=== PATIENT | male | born 1955 | race Caucasian/White ===

== ENCOUNTER 2019-05-05 13:53 | Observation (INO) | payer MEDICAID ==
--- NOTE | 2019-05-05 15:50 | PCM.HP.2 ---
H&P History of Present Illness - General Date of Service: 05/05/19 Admit Problem/Dx: Admission Diagnosis/Problem Admission Diagnosis/Problem Pancreatitis Source of Information: Patient History Limitations: Reports: No Limitations - History of Present Illness Initial Comments - Free Text/Narative: This is a 64yo M placed in observation for management of acute pancreatitis. He denies fever or chills but has intermittent abdominal pain at times. Onset of Symptoms: Reports: Gradual Duration of Symptoms: Reports: Intermittent, Waxing/Waning Location: Reports: Abdomen Severity: Moderate Improves with: Reports: None Worsens with: Reports: None Associated Symptoms: Reports: No Other Symptoms H&P Review of Systems - Review of Systems: Review Of Systems: Comprehensive ROS is negative, except as noted in HPI. Exam - Exam Exam: See Below - Exam General: Alert, Oriented HEENT: PERRLA, Conjunctiva Clear, EACs Clear, EOMI Neck: Supple, Trachea Midline Lungs: Clear to Auscultation, Normal Respiratory Effort Cardiovascular: Regular Rate, Regular Rhythm GI/Abdominal Exam: Normal Bowel Sounds, Soft, Tender Extremities: Normal Inspection Peripheral Pulses: 2+: Dorsalis Pedis (L), Dorsalis Pedis (R) Skin: Warm, Dry, Intact - Patient Data Lab Results Last 24 hrs: Laboratory Results - last 24 hr 05/05/19 05/05/19 Range/Units 14:18 14:18 WBC 10.9 D (4.0-11.0) K/uL RBC 5.61 (4.50-6.50) M/uL Hgb 16.1 (13.0-18.0) g/dL Hct 46.4 (40.0-54.0) % MCV 83 (76-96) fL MCH 28.7 (27.0-32.0) pg MCHC 34.7 (31.0-35.0) g/dL RDW 13.2 (11.0-16.0) % Plt Count 371 D (150-400) K/uL MPV 10.0 (6.0-10.0) fL Neut % (Auto) 74.2 H (45.0-70.0) % Lymph % (Auto) 18.3 L (20.0-40.0) % [place] % (Auto) 5.7 (3.0-10.0) % Eos % (Auto) 1.3 (1.0-5.0) % Baso % (Auto) 0.5 (0.0-0.5) % Neut # (Auto) 8.13 H (2.00-7.50) K/uL Lymph # (Auto) 2.00 (1.50-4.00) K/uL [place] # (Auto) 0.62 (0.20-0.80) K/uL Eos # (Auto) 0.14 (0.04-0.40) K/uL Baso # (Auto) 0.05 (0.02-0.10) K/uL Lactic Acid 1.07 (0.90-1.70) mmol/L Result Diagrams: 05/05/19 14:18 05/05/19 14:18 - Problem List (1) Acute pancreatitis SNOMED Code(s): 886125990 ICD Code: K85.90 - ACUTE PANCREATITIS WITHOUT NECROSIS OR INFECTION, UNSP Status: Acute Priority: High Current Visit: Yes Qualifiers: Pancreatitis type: unspecified pancreatitis type Acute pancreatitis complication: unspecified Qualified Code(s): K85.90 - Acute pancreatitis without necrosis or infection, unspecified Problem List Initiated/Reviewed/Updated: Yes Orders Last 24hrs: Active Orders 24 hr Category Date Time Status Patient Status [ADT] Routine ADT 05/05/19 15:12 Ordered Vital Signs [RC] Q4H Care 05/05/19 15:12 Ordered Abdomen Pelvis wo Cont [CT] Routine Exams 05/05/19 Taken COMPREHENSIVE METABOLIC PN,CMP [CHEM] Routine Lab 05/05/19 14:18 Received LIPASE [CHEM] Routine Lab 05/05/19 14:18 Received Lactated Ringers [Ringers, Lactated] 1,000 ml Med 05/05/19 15:15 Ordered IV ASDIRECTED Medication Orders Lactated Ringer's (Ringers, Lactated) 1,000 mls @ 500 mls/hr IV ASDIRECTED JACK[facility] Stop: 05/10/19 17:14 Assessment/Plan Comment:: Patient to be placed in observation and given IV fluid hydration. F/u labs in am. Discussed pain management and conservative therapy.
[2019-05-05] MEDS: Lactated Ringers 1,000 ML IV SCH ×4 (17:26→23:37)
--- NOTE | 2019-05-05 20:12 | CT ---
CLINICAL DATA: Unspecified abdominal pain. UNENHANCED ABDOMEN AND PELVIC CT, 05 MAY 2019: Multislice acquisition through the abdomen and pelvis without IV or oral contrast was performed. No priors. The lung bases are clear. There is diffuse fatty infiltration of the liver. No focal hepatic lesions. The gallbladder appears normal. The spleen appears normal. The pancreas is normal size. There is, however, mild peripancreatic fat stranding suggesting mild pancreatitis. No evidence of pancreatic mass. The right and left adrenals appear normal. There are bilateral parapelvic cysts. The kidneys otherwise appear normal. No nephrocalcinosis or nephrolithiasis. No hydronephrosis or hydroureter. No evidence of appendicitis. There is a moderate amount of stool noted within the right colon. The bladder is partially fluid-filled. It appears normal. The prostate is enlarged. No free air. No free fluid. No dilated loops of bowel. No adenopathy. There is an umbilical hernia containing fat. There is degenerative disk disease at multiple levels in the lower thoracic and lumbar spine. IMPRESSION: Multiple findings, as discussed above. Job: [id number] [facility]
[2019-05-06] MEDS: Lactated Ringers 1,000 ML IV SCH ×2 (01:34→03:33)
[2019-05-06] MEDS ORDERED: Dextrose 5%-0.45% NaCl 500 ML IV SCH (09:30)
--- NOTE | 2019-05-06 10:54 | PCM.PN ---
- General Info Date of Service: 05/06/19 Subjective Update: Patient remains stable and pain is controlled. He denies any nausea or vomiting. No issues overnight. Functional Status: Reports: Pain Controlled - Review of Systems General: Reports: No Symptoms HEENT: Reports: No Symptoms Pulmonary: Reports: No Symptoms Cardiovascular: Reports: No Symptoms Gastrointestinal: Reports: Abdominal Pain (on and off but non-localized) Genitourinary: Reports: No Symptoms Musculoskeletal: Reports: No Symptoms - Patient Data Vitals - Most Recent: Last Vital Signs Temp 37.0 C 05/06/19 08:00 Pulse 78 05/06/19 08:00 Resp 18 05/06/19 08:00 BP 169/60 H 05/06/19 08:00 Pulse Ox 98 05/06/19 08:00 Weight - Most Recent: 113.489 kg I&O - Last 24 Hours: Intake & Output 05/05/19 05/06/19 05/06/19 22:59 06:59 14:59 Intake Total 250 5912 Output Total 1675 Balance 250 4237 Lab Results Last 24 Hours: Laboratory Results - last 24 hr 05/05/19 05/05/19 05/05/19 Range/Units 14:18 14:18 14:18 WBC 10.9 D (4.0-11.0) K/uL RBC 5.61 (4.50-6.50) M/uL Hgb 16.1 (13.0-18.0) g/dL Hct 46.4 (40.0-54.0) % MCV 83 (76-96) fL MCH 28.7 (27.0-32.0) pg MCHC 34.7 (31.0-35.0) g/dL RDW 13.2 (11.0-16.0) % Plt Count 371 D (150-400) K/uL MPV 10.0 (6.0-10.0) fL Neut % (Auto) 74.2 H (45.0-70.0) % Lymph % (Auto) 18.3 L (20.0-40.0) % [place] % (Auto) 5.7 (3.0-10.0) % Eos % (Auto) 1.3 (1.0-5.0) % Baso % (Auto) 0.5 (0.0-0.5) % Neut # (Auto) 8.13 H (2.00-7.50) K/uL Lymph # (Auto) 2.00 (1.50-4.00) K/uL [place] # (Auto) 0.62 (0.20-0.80) K/uL Eos # (Auto) 0.14 (0.04-0.40) K/uL Baso # (Auto) 0.05 (0.02-0.10) K/uL Sodium 133 L (136-145) mmol/L Potassium 4.0 (3.5-5.1) mmol/L Chloride 99 (98-107) mmol/L Carbon Dioxide 25.0 (21.0-32.0) mmol/L Anion Gap 13.0 (5.0-15.0) mmol/L BUN 15 D (8-26) mg/dL Creatinine 1.23 (0.70-1.30) mg/dL Est Cr Clr Drug Dosing TNP Estimated GFR (MDRD) 59 L (>60) MLS/MIN BUN/Creatinine Ratio 12.2 (6-25) Glucose 231 H D (74-100) mg/dL Lactic Acid 1.07 (0.90-1.70) mmol/L Calcium 9.3 (8.5-10.1) mg/dL Total Bilirubin 0.6 (0.0-1.0) mg/dL AST 12 L (15-37) U/L ALT 26 (12-78) U/L Alkaline Phosphatase 154 H (46-116) U/L Total Protein 8.5 H (6.4-8.2) g/dL Albumin 3.9 (3.4-5.0) g/dL Globulin 4.6 H (2.2-4.2) g/dL Albumin/Globulin Ratio 0.9 (0.8-2.0) Lipase 4309 H* (73-393) U/L 05/06/19 05/06/19 Range/Units 07:50 07:50 WBC 10.9 (4.0-11.0) K/uL RBC 4.86 (4.50-6.50) M/uL Hgb 14.1 (13.0-18.0) g/dL Hct 40.4 (40.0-54.0) % MCV 83 (76-96) fL MCH 29.0 (27.0-32.0) pg MCHC 34.9 (31.0-35.0) g/dL RDW 13.0 (11.0-16.0) % Plt Count 287 D (150-400) K/uL MPV 10.2 H (6.0-10.0) fL Neut % (Auto) 76.2 H (45.0-70.0) % Lymph % (Auto) 15.2 L (20.0-40.0) % [place] % (Auto) 6.8 (3.0-10.0) % Eos % (Auto) 1.6 (1.0-5.0) % Baso % (Auto) 0.2 (0.0-0.5) % Neut # (Auto) 8.29 H (2.00-7.50) K/uL Lymph # (Auto) 1.65 (1.50-4.00) K/uL [place] # (Auto) 0.74 (0.20-0.80) K/uL Eos # (Auto) 0.17 (0.04-0.40) K/uL Baso # (Auto) 0.02 (0.02-0.10) K/uL Sodium 136 (136-145) mmol/L Potassium 3.7 (3.5-5.1) mmol/L Chloride 103 (98-107) mmol/L Carbon Dioxide 23.0 (21.0-32.0) mmol/L Anion Gap 13.7 (5.0-15.0) mmol/L BUN 9 D (8-26) mg/dL Creatinine 0.87 D (0.70-1.30) mg/dL Est Cr Clr Drug Dosing 96.94 Estimated GFR (MDRD) > 60 (>60) MLS/MIN BUN/Creatinine Ratio 10.3 (6-25) Glucose 185 H (74-100) mg/dL Lactic Acid (0.90-1.70) mmol/L Calcium 8.2 L (8.5-10.1) mg/dL Total Bilirubin 0.7 (0.0-1.0) mg/dL AST 12 L (15-37) U/L ALT 19 (12-78) U/L Alkaline Phosphatase 118 H (46-116) U/L Total Protein 6.6 (6.4-8.2) g/dL Albumin 2.9 L (3.4-5.0) g/dL Globulin 3.7 (2.2-4.2) g/dL Albumin/Globulin Ratio 0.8 (0.8-2.0) Lipase 6128 H* D (73-393) U/L Med Orders - Current: Current Medications Dextrose/Sodium Chloride (Dextrose 5%-1/2 Ns) 500 mls @ 250 mls/hr IV ASDIRECTED [facility] Last Admin: 05/06/19 09:35 Dose: 250 mls/hr Ceftriaxone Sodium 1 gm/ (Sodium Chloride) 50 mls @ 100 mls/hr IV Q24H [facility] Stop: 05/10/19 11:29 Discontinued Medications Lactated Ringer's (Ringers, Lactated) 1,000 mls @ 500 mls/hr IV ASDIRECTED [facility] Stop: 05/10/19 17:14 Last Admin: 05/06/19 03:33 Dose: 500 mls/hr - Exam General: Alert, Oriented, Cooperative HEENT: Pupils Equal, Pupils Reactive, EOMI Neck: Supple Lungs: Clear to Auscultation, Normal Respiratory Effort Cardiovascular: Regular Rate, Regular Rhythm GI/Abdominal Exam: Normal Bowel Sounds, Soft Back Exam: Normal Inspection Extremities: Normal Inspection - Problem List & Annotations (1) Acute pancreatitis SNOMED Code(s): 491340839 Code(s): K85.90 - ACUTE PANCREATITIS WITHOUT NECROSIS OR INFECTION, UNSP Status: Acute Priority: High Current Visit: Yes Qualifiers: Pancreatitis type: unspecified pancreatitis type Acute pancreatitis complication: unspecified Qualified Code(s): K85.90 - Acute pancreatitis without necrosis or infection, unspecified - Problem List Review Problem List Initiated/Reviewed/Updated: Yes - My Orders Last 24 Hours: My Active Orders 05/05/19 15:12 Patient Status [ADT] Routine Vital Signs [RC] 00,04,08,12,16,20 05/05/19 22:20 CULTURE MRSA SURVEY [RM] Routine 05/06/19 09:30 Dextrose 5%-0.45% NaCl [Dextrose 5%-1/2 NS] 500 ml IV ASDIRECTED 05/06/19 10:18 HEPATITIS PANEL (4) Routine HIV RNA, RT PCR (NONGRAPH) PL Routine 05/06/19 11:00 cefTRIAXone [Rocephin] 1 gm Sodium Chloride 0.9% [Normal Saline] 50 ml IV Q24H 05/06/19 Breakfast NPO Now [Nothing per Oral Now Diet] [DIET] 05/07/19 05:11 CBC WITH AUTO DIFF [HEME] AM COMPREHENSIVE METABOLIC PN,CMP [CHEM] AM LIPASE [CHEM] Routine - Plan Plan:: Patient to be placed in observation and given IV fluid hydration. F/u labs in am. Discussed pain management and conservative therapy. 05/06/19 Patient's lipase level has elevated. We will continue IV hydration and start empiric antibiotics. May consider admit to inpatient depending on progress and also consider transfer to GI if labs continue to worsen.
[2019-05-06] MEDS: cefTRIAXone 1 GM in Sodium Chloride 0.9% 50 ML IV SCH (11:22)
[2019-05-06] MEDS ORDERED: Dextrose 5%-0.45% NaCl 1,000 ML IV SCH (14:00)
[2019-05-06] MEDS: Dextrose 5%-0.45% NaCl 1,000 ML IV SCH ×2 (17:45→21:37)
[2019-05-06] MEDS ORDERED: AMLODIPINE 10 MG PO SCH (20:00)
[2019-05-07] MEDS: Dextrose 5%-0.45% NaCl 1,000 ML IV SCH ×3 (01:37→09:21)
[2019-05-07] MEDS: cefTRIAXone 1 GM in Sodium Chloride 0.9% 50 ML IV SCH (11:13)
[2019-05-07] MEDS ORDERED: Ondansetron 4 MG Tab.DIS ONE (13:10)
--- NOTE | 2019-05-07 14:58 | DISCH ---
HOSPITAL COURSE: This 64-year-old male was admitted yesterday through the clinic with mild pancreatitis. The patient had some abdominal discomfort. A CT scan did confirm peripancreatic fat stranding suggesting mild pancreatitis. The patient's lipase was significantly elevated, initially around 4000. It was rechecked last evening with a jump to 6100. The patient has been given IV fluids. The course of treatment was to rehydrate him. He has not needed any pain medications. The patient tells me that this morning he feels his symptoms have totally resolved and he is wondering if he can go home. Past medical history includes hypertension, borderline diabetes, and dyslipidemia. The patient denies any recent falls or injuries. He has been n.p.o. overnight. Vital signs showed his blood pressure has been elevated. His blood pressure medications, he did not take for a couple of days, but they were restarted last night and now today his blood pressure is better, initially blood pressure 171/67, at noon today it was 157/76. I did consult with the hospitalist this morning, Dr. Rodgers with the recommendations to get at least one more lipase test tomorrow morning before discharging the patient, although consider the patient from a clinical perspective. The patient was given Rocephin last yesterday and again it today and he did eat a soft diet at noon, telling me that it went very well, it felt good to eat something. He is not having any symptoms as of 1 p.m. today. PHYSICAL EXAMINATION: ABDOMEN: Soft, nontender. I cannot reproduce any pain with palpation involving the upper left quadrant. SKIN: Warm and dry. LUNGS: Clear. CARDIAC: Heart sounds are distinct without murmurs. TREATMENT PLAN: At this point, I had a discussion with the patient relaying the hospitalists instructions. The patient tells me he feels like he should be able to go home. [place] live in town. We had further discussion about following up for labs and he agrees that he would follow up whenever we want him back. Therefore, we will discharge the patient today. He is to go home and rest, utilize a soft diet. We will give him 2 Zofran tablets to use as needed for nausea and he is to come back tomorrow morning for blood pressure recheck and a followup lipase test. The patient readily agrees to this and has no further questions. CRS/MODL /[id number]
[2019-05-08 16:07] LABS: HBSAG SCREEN Negative (Negative); HEP A AB, IGM Negative (Negative); HEP B CORE AB, IGM Negative (Negative); HEP C VIRUS AB <0.1 s/co ratio (0.0-0.9)
[2019-05-11 22:07] LABS: HIV-1 RNA BY PCR <20 copies/mL (.)
== END 2019-05-07 13:45 | disposition home or self-care (01) ==
LOC: LB.MS 13:53 → LB.CLINIC 13:53 → LB.MS 15:12
PROVIDERS: ADMIT Family Medicine; ATTEND Family Medicine
DX: K85.90 Acute pancreatitis without necrosis or infection, unspecified (principal); I10 Essential (primary) hypertension; E78.5 Hyperlipidemia, unspecified
CPT/HCPCS: 36415; 74176; 80053; 80074; 82150; 83605; 83690; 85025; 87536; 96361; 96365; 96376; G0378; J0696; J7030; J7050; J7120

== ENCOUNTER → 2019-05-17 | Outpatient (CLI) | payer MEDICAID | LOC: LB.CLINIC 08:44 | PROVIDERS: ATTEND Family Medicine | DX: K85.90 Acute pancreatitis without necrosis or infection, unspecified (principal) | CPT/HCPCS: 36415; 83690 ==

== ENCOUNTER 2019-10-17 16:18 | Observation (INO) | payer MEDICAID ==
--- NOTE | 2019-10-17 16:32 | PCM.HP.2 ---
H&P History of Present Illness - General Date of Service: 10/17/19 Admit Problem/Dx: Admission Diagnosis/Problem Admission Diagnosis/Problem Anemia Source of Information: Patient History Limitations: Reports: No Limitations - History of Present Illness Initial Comments - Free Text/Narative: This patient presented to the facility for IV fluids. He is followed by Dr. Treviño at [facility] for metastatic pancreatic cancer. He has bee getting chemotherapy regularly but did not feel as though he could get it today as he felt so weakened and unable to travel. He contacted the center and they recommended he present her for hydration. After receiving fluids and reviewing lab work, he does not feel able to go home. His hemoglobin today is 8.1 and he states he has been too weak to take care of himself at home. He states he has also recently developed diarrhea and has had that for the past few days as well. He has no appetite and has not been drinking fluids well the past few days either. He states that prior to his cancer diagnosis he was a "healthy brittany" and isn't sure that he wants to feel "this bad" to try to treat his cancer. He denies any particular pain, just reiterates the profound weakness he has had. Onset of Symptoms: Reports: Gradual Generalized Pain Score (Numeric/FACES): 0 - Related Data Allergies/Adverse Reactions: Allergies Allergy/AdvReac Type Severity Reaction Status Date / Time No Known Allergies Allergy Verified 10/17/19 18:58 Home Medications: Home Meds Insulin Aspart [Insulin Aspart Penfill] 100 unit SQ ASDIRECTED 10/17/19 [History ] Insulin Glarg,Human.Rec.Analog [Lantus Solostar] 100 unit SQ ASDIRECTED [History] Potassium Chloride 10 meq PO DAILY 10/17/19 [History] Prochlorperazine [Compazine] 10 mg PO Q6H PRN 10/17/19 [History] Acetaminophen [Tylenol] 650 mg PO Q4H PRN tablet 10/19/19 [Rx] Insulin Aspart [Insulin Aspart Penfill] 100 unit SQ ASDIRECTED 10/19/19 [Rx] Loperamide [Imodium] 4 mg PO Q6H PRN cap 10/19/19 [Rx] Past Medical History HEENT History: Reports: Impaired Vision Cardiovascular History: Reports: High Cholesterol, Hypertension Social & Family History - Family History Family Medical History: Noncontributory - Caffeine Use Caffeine Use: Reports: Coffee, Soda H&P Review of Systems - Review of Systems: Review Of Systems: See Below General: Reports: Weakness, Fatigue, Decreased Appetite, Weight Loss. Denies: Fever HEENT: Reports: No Symptoms Pulmonary: Reports: No Symptoms Cardiovascular: Reports: No Symptoms Gastrointestinal: Reports: Anorexia, Diarrhea, Decreased Appetite. Denies: Abdominal Pain, Difficulty Swallowing, Nausea, Vomiting Genitourinary: Reports: No Symptoms Musculoskeletal: Reports: No Symptoms Skin: Reports: Pallor, Dryness Neurological: Reports: No Symptoms Hematologic/Lymphatic: Reports: Other (port-a-cath in place) Exam - Exam Exam: See Below - Vital Signs Vital Signs: Last Vital Signs Temp 36.2 C 10/17/19 14:01 Pulse 83 10/17/19 14:01 Resp 14 10/17/19 14:01 BP 105/51 L 10/17/19 14:01 Pulse Ox 100 10/17/19 14:01 - Exam Quality Assessment: Central Line/PICC General: Alert, Oriented, Cooperative HEENT: PERRLA, Conjunctiva Clear, EACs Clear, EOMI, Hearing Intact, Posterior Pharynx Clear, Pupils Equal, Pupils Reactive, Glasses Neck: Supple. No: Lymphadenopathy Lungs: Clear to Auscultation, Normal Respiratory Effort Cardiovascular: Regular Rhythm GI/Abdominal Exam: Abnormal Bowel Sounds (hypoactive x 4) Extremities: No Pedal Edema, Normal Capillary Refill Skin: Warm, Dry, Intact Neuro Extensive - Mental Status: Alert, Oriented x3 Psychiatric: Alert - Patient Data Lab Results Last 24 hrs: Laboratory Results - last 24 hr 10/17/19 10/17/19 Range/Units 13:57 13:57 WBC 4.4 D (4.0-11.0) K/uL RBC 2.95 L (4.50-6.50) M/uL Hgb 8.1 L D (13.0-18.0) g/dL Hct 24.0 L D (40.0-54.0) % MCV 81 (76-96) fL MCH 27.5 (27.0-32.0) pg MCHC 33.8 (31.0-35.0) g/dL RDW 16.4 H (11.0-16.0) % Plt Count 87 L D (150-400) K/uL MPV 10.1 H (6.0-10.0) fL Neut % (Auto) 70.9 H (45.0-70.0) % Lymph % (Auto) 23.4 (20.0-40.0) % [place] % (Auto) 4.3 (3.0-10.0) % Eos % (Auto) 0.9 L (1.0-5.0) % Baso % (Auto) 0.5 (0.0-0.5) % Neut # (Auto) 3.13 (2.00-7.50) K/uL Lymph # (Auto) 1.03 L (1.50-4.00) K/uL [place] # (Auto) 0.19 L (0.20-0.80) K/uL Eos # (Auto) 0.04 (0.04-0.40) K/uL Baso # (Auto) 0.02 (0.02-0.10) K/uL Sodium 139 (136-145) mmol/L Potassium 3.0 L (3.5-5.1) mmol/L Chloride 102 (98-107) mmol/L Carbon Dioxide 22.8 (21.0-32.0) mmol/L Anion Gap 17.2 H (5.0-15.0) mmol/L BUN 7 L (8-26) mg/dL Creatinine 0.76 (0.70-1.30) mg/dL Est Cr Clr Drug Dosing TNP Estimated GFR (MDRD) > 60 (>60) MLS/MIN BUN/Creatinine Ratio 9.2 (6-25) Glucose 100 D (74-100) mg/dL Calcium 7.7 L (8.5-10.1) mg/dL Magnesium 1.8 (1.8-2.4) mg/dL Total Bilirubin 1.1 H D (0.0-1.0) mg/dL AST 67 H (15-37) U/L ALT 40 (12-78) U/L Alkaline Phosphatase 253 H (46-116) U/L Total Protein 5.0 L (6.4-8.2) g/dL Albumin 1.7 L (3.4-5.0) g/dL Globulin 3.3 (2.2-4.2) g/dL Albumin/Globulin Ratio 0.5 L (0.8-2.0) Result Diagrams: 10/19/19 07:43 10/19/19 07:43 Sepsis Event Note - Focused Exam Vital Signs: Vital Signs Temp Pulse Resp BP Pulse Ox 10/17/19 14:01 36.2 C 83 14 105/51 L 100 Date Exam was Performed: 10/20/19 Time Exam was Performed: 18:19 - Problem List (1) Acute pancreatitis SNOMED Code(s): 118878061 ICD Code: K85.90 - ACUTE PANCREATITIS WITHOUT NECROSIS OR INFECTION, UNSP Status: Acute Priority: High Qualifiers: Pancreatitis type: unspecified pancreatitis type Acute pancreatitis complication: unspecified Qualified Code(s): K85.90 - Acute pancreatitis without necrosis or infection, unspecified (2) Anemia SNOMED Code(s): 074551044 ICD Code: D64.9 - ANEMIA, UNSPECIFIED Status: Acute Priority: High Qualifiers: Anemia type: other cause Other causes of anemia: antineoplastic chemotherapy Qualified Code(s): D64.81 - Anemia due to antineoplastic chemotherapy; T45.1X5A - Adverse effect of antineoplastic and immunosuppressive drugs, initial encounter Problem List Initiated/Reviewed/Updated: Yes Orders Last 24hrs: Active Orders 24 hr Category Date Time Status Patient Status [ADT] Routine ADT 10/17/19 16:18 Ordered Oxygen Therapy [RC] PRN Care 10/17/19 16:18 Ordered Vital Signs [RC] Q4H Care 10/17/19 16:18 Ordered RED BLOOD CELLS LP [BBK] Stat Lab 10/17/19 16:21 Ordered TYPE AND SCREEN [BBK] Stat Lab 10/17/19 16:21 Ordered Acetaminophen [Tylenol Extra Strength] Med 10/17/19 16:24 Once 1,000 mg PO ONETIME ONE Acetaminophen [Tylenol] Med 10/17/19 16:18 Ordered 650 mg PO Q4H PRN Sodium Chloride 0.9% [Normal Saline] 1,000 ml Med 10/17/19 14:15 Active IV ASDIRECTED amLODIPine Besylate/Benazepril [Amlodipine-Benazepril Med 10/18/19 08:00 Ordered 10-20 mg] 1 cap PO DAILY amLODIPine [Norvasc] Med 10/17/19 20:00 Ordered 10 mg PO BEDTIME atorvaSTATin [Lipitor] Med 10/17/19 20:00 Ordered 10 mg PO BEDTIME diphenhydrAMINE [Benadryl] Med 10/17/19 16:24 Once 50 mg IVPUSH ONETIME ONE Transfuse Red Blood Cells [COMM] Stat Oth 10/17/19 16:23 Ordered Medication Orders Acetaminophen (Tylenol) 650 mg PO Q4H PRN PRN Reason: analgesia/fever Acetaminophen (Tylenol Extra Strength) 1,000 mg PO ONETIME ONE Stop: 10/17/19 16:25 Amlodipine Besylate (Norvasc) 10 mg PO BEDTIME JACKLYN Atorvastatin Calcium (Lipitor) 10 mg PO BEDTIME JACKLYN Diphenhydramine HCl (Benadryl) 50 mg IVPUSH ONETIME ONE Stop: 10/17/19 16:25 Sodium Chloride (Normal Saline) 1,000 mls @ 150 mls/hr IV ASDIRECTED JACKLYN Stop: 10/17/19 23:59 Last Admin: 10/17/19 14:30 Dose: 150 mls/hr Non-Formulary Medication (Amlodipine Besylate/Benazepril [Amlodipine-Benazepril 10-20 Mg]) 1 cap PO DAILY [facility] Assessment/Plan Comment:: Plan 1) Continue IVF 2) Transfuse 2 units packed red blood cells 3) Premedicate with acetminophen 1000 mg po and benadryl 50 mg IV 4) Diet and activity as tolerated
[2019-10-17] MEDS ORDERED: Acetaminophen 325 MG Tab PO PRN (16:59)
[2019-10-17] MEDS ORDERED: Acetaminophen 500 MG Tab PO ONE (17:02)
[2019-10-17] MEDS ORDERED: diphenhydrAMINE 50 MG/ML SDV IVPUSH ONE (17:03)
[2019-10-17] MEDS ORDERED: Sodium Chloride 0.9% 1,000 ML IV SCH (17:15)
[2019-10-17] MEDS ORDERED: PROCHLORPERAZINE 10 MG PO PRN (19:33)
[2019-10-17] MEDS ORDERED: LORazepam 2 MG/ML SDV IVPUSH PRN ×2 (19:36→19:56)
[2019-10-17] MEDS ORDERED: Ondansetron 4 MG/2 ML SDV IVPUSH PRN (19:37)
[2019-10-17] MEDS ORDERED: Non-Formulary Medication 1 Each (Insulin Glarg,Human.Rec.Analog [Lantus Solostar] 100 UNIT SQ SCH (19:45)
[2019-10-17] MEDS ORDERED: INSULIN ASPART 100 UNIT SQ SCH (19:45)
[2019-10-18] MEDS: D5 1/2 NS w/ 20 mEq/L KCl 1,000 ML IV SCH ×3 (00:33→16:45)
[2019-10-18] MEDS: AMLODIPINE BESYLATE PO SCH (08:09)
[2019-10-18] MEDS: BENAZEPRIL PO SCH (08:09)
[2019-10-18] MEDS: POTASSIUM CHLORIDE 10 MEQ PO SCH (10:06)
--- NOTE | 2019-10-18 10:18 | PCM.PN ---
- General Info Date of Service: 10/18/19 Admission Dx/Problem (Free Text): Anemia Weakness Subjective Update: States he is feeling some better this morning. Walked to bathroom with assistance but seemed to tolerate it better today. Was able to eat and retain small amount of breakfast. No vomiting, some diarrhea continues. Denies pain. Functional Status: Reports: Pain Controlled, Tolerating Diet, Urinating. Denies : New Symptoms - Review of Systems General: Reports: Weakness. Denies: Fever HEENT: Reports: No Symptoms Pulmonary: Reports: No Symptoms Gastrointestinal: Reports: Decreased Appetite, Diarrhea. Denies: Nausea, Vomiting Genitourinary: Reports: No Symptoms Musculoskeletal: Reports: No Symptoms Skin: Reports: No Symptoms Neurological: Reports: No Symptoms - Patient Data Vitals - Most Recent: Last Vital Signs Temp 36.6 C 10/18/19 07:56 Pulse 70 10/18/19 07:56 Resp 15 10/18/19 07:56 BP 125/57 L 10/18/19 07:56 Pulse Ox 97 10/18/19 07:56 Weight - Most Recent: 81.647 kg I&O - Last 24 Hours: Intake & Output 10/17/19 10/18/19 10/18/19 22:59 06:59 14:59 Intake Total 1750 1650 Balance 1750 1650 Lab Results Last 24 Hours: Laboratory Results - last 24 hr 10/17/19 10/17/19 Range/Units 13:55 19:14 POC Glucose 118 H (74-110) mg/dL Blood Type A POSITIVE Gel Antibody Screen Negative Crossmatch See Detail Med Orders - Current: Current Medications Acetaminophen (Tylenol) 650 mg PO Q4H PRN PRN Reason: analgesia/fever Sodium Chloride (Normal Saline) 1,000 mls @ 125 mls/hr IV ASDIRECTED JACKLYN Last Admin: 10/17/19 17:06 Dose: 125 mls/hr Potassium Chloride/Dextrose/Sod Cl (D5 1/2 Ns W/ 20 Meq/L Kcl) 1,000 mls @ 125 mls/hr IV ASDIRECTED JACKLYN Last Admin: 10/18/19 08:11 Dose: 125 mls/hr Lorazepam (Ativan) 1 mg IVPUSH BEDTIME PRN PRN Reason: Sleep Last Admin: 10/17/19 21:32 Dose: 1 mg Lorazepam (Ativan) 1 mg IVPUSH Q3H PRN PRN Reason: Anxiety Amlodipine Besylate/Benazepril 10/20 Mg Cap Own Med 1 cap PO DAILY [facility] Last Admin: 10/18/19 08:09 Dose: Not Given Non-Formulary Medication (Insulin Aspart [Insulin Aspart Penfill]) 100 unit SQ ASDIRECTED [facility] Non-Formulary Medication (Insulin Glarg,Human.Rec.Analog [Lantus Solostar]) 100 unit SQ ASDIRECTED [facility] Potassium Chloride 10 Meq Tab Own Med 0 meq PO DAILY [facility] Last Admin: 10/18/19 10:06 Dose: 10 meq Prochlorperazine ( Compazine) 10 Mg Tab Own Med 0 mg PO Q6H PRN PRN Reason: Nausea Ondansetron HCl (Zofran) 4 mg IVPUSH ONETIME PRN PRN Reason: Nausea/Vomiting Last Admin: 10/17/19 21:33 Dose: 4 mg Discontinued Medications Acetaminophen (Tylenol Extra Strength) 1,000 mg PO ONETIME ONE Stop: 10/17/19 17:03 Last Admin: 10/17/19 18:01 Dose: 1,000 mg Diphenhydramine HCl (Benadryl) 50 mg IVPUSH ONETIME ONE Stop: 10/17/19 17:04 Last Admin: 10/17/19 18:01 Dose: 50 mg - Exam Quality Assessment: Central Line/PICC General: Alert, Oriented HEENT: Pupils Equal, Pupils Reactive, EOMI, Mucous Membr. Moist/[place] Neck: Supple Lungs: Clear to Auscultation, Normal Respiratory Effort Cardiovascular: Regular Rate, Regular Rhythm GI/Abdominal Exam: Normal Bowel Sounds, Soft, Non-Tender Extremities: Normal Capillary Refill Skin: Warm, Dry Neurological: No New Focal Deficit Psy/Mental Status: Alert Sepsis Event Note - Evaluation Sepsis Screening Result: No Definite Risk - Focused Exam Vital Signs: Vital Signs Temp Temp Pulse Resp BP Pulse Ox 10/18/19 07:56 36.6 C 70 15 125/57 L 97 10/17/19 23:52 36.7 C 60 16 110/50 L 99 10/17/19 23:48 36.7 C 60 16 110/50 L 99 Date Exam was Performed: 10/18/19 Time Exam was Performed: 10:13 - Problem List Review Problem List Initiated/Reviewed/Updated: Yes - My Orders Last 24 Hours: My Active Orders 10/17/19 16:59 Patient Status [ADT] Routine Vital Signs [RC] 00,04,08,12,16,20 Acetaminophen [Tylenol] 650 mg PO Q4H PRN 10/17/19 17:02 POC Glucose [Blood Glucose Check, Bedside] [RC] 08,12,17,20 10/17/19 17:15 Sodium Chloride 0.9% [Normal Saline] 1,000 ml IV ASDIRECTED 10/17/19 17:45 CULTURE MRSA SURVEY [RM] Routine 10/17/19 18:42 CULTURE MRSA SURVEY [RM] Routine 10/17/19 18:47 Resuscitation Status Routine 10/17/19 19:33 Prochlorperazine [Compazine] 0 mg PO Q6H PRN 10/17/19 19:36 LORazepam [Ativan] 1 mg IVPUSH BEDTIME PRN 10/17/19 19:37 Ondansetron [Zofran] 4 mg IVPUSH ONETIME PRN 10/17/19 19:45 Insulin Aspart [Insulin Aspart Penfill] 100 unit SQ ASDIRECTED Insulin Glarg,Human.Rec.Analog [Lantus Solostar] 100 unit SQ ASDIRECTED 10/17/19 19:56 LORazepam [Ativan] 1 mg IVPUSH Q3H PRN 10/17/19 22:13 D5 1/2 NS w/ 20 mEq/L KCl 1,000 ml IV ASDIRECTED 10/18/19 08:00 Potassium Chloride [Potassium Chloride] 0 meq PO DAILY amLODIPine Besylate/Benazepril [Amlodipine-Benazepril 10-20 mg] 1 cap PO DAILY
[2019-10-18] MEDS: Loperamide 2 MG Cap PO PRN ×2 (10:34→19:49)
[2019-10-18] MEDS ORDERED: Insulin Glargine,Human Rec. Analog 100 Units/ML 3 ML Pen SUBCUT ONE (20:45)
--- NOTE | 2019-10-19 07:57 | PCM.DCSUM1 ---
Discharge Summary - Hospital Course Diagnosis: Stroke: No - Discharge Data Discharge Date: 10/19/19 Discharge Disposition: Home, Self-Care 01 Condition: Good - Referral to Home Health Primary Care Physician: PCP None - Discharge Plan *PRESCRIPTION DRUG MONITORING PROGRAM REVIEWED*: No Home Medications: Home Meds amLODIPine Besylate/Benazepril [Amlodipine-Benazepril 10-20 mg] 1 cap PO DAILY 05/05/19 [History] Insulin Aspart [Insulin Aspart Penfill] 100 unit SQ ASDIRECTED 10/17/19 [History ] Insulin Glarg,Human.Rec.Analog [Lantus Solostar] 100 unit SQ ASDIRECTED [History] Potassium Chloride 10 meq PO DAILY 10/17/19 [History] Prochlorperazine [Compazine] 10 mg PO Q6H PRN 10/17/19 [History] - Discharge Summary/Plan Comment DC Time >30 min.: No - General Info Date of Service: 10/19/19 Admission Dx/Problem (Free Text: Anemia Weakness Subjective Update: Doing better this morning with increased energy. Has been eating some. Continuing to have diarrhea. Interested in going home. Functional Status: Reports: Pain Controlled - Review of Systems General: Reports: Weakness. Denies: Fever HEENT: Reports: No Symptoms Pulmonary: Reports: No Symptoms Cardiovascular: Reports: No Symptoms Gastrointestinal: Reports: No Symptoms Genitourinary: Reports: No Symptoms Musculoskeletal: Reports: No Symptoms Skin: Reports: No Symptoms Neurological: Reports: No Symptoms - Patient Data Vitals - Most Recent: Last Vital Signs Temp 36.4 C 10/19/19 03:53 Pulse 84 10/19/19 03:53 Resp 18 10/19/19 03:53 BP 134/61 10/19/19 03:53 Pulse Ox 96 10/19/19 03:53 Weight - Most Recent: 81.647 kg I&O - Last 24 hours: Intake & Output 10/18/19 10/19/19 10/19/19 22:59 06:59 14:59 Intake Total 1953 1228 Balance 1953 1228 Lab Results - Last 24 hrs: Laboratory Results - last 24 hr 10/18/19 10/18/19 10/18/19 Range/Units 06:54 11:34 15:42 WBC (4.0-11.0) K/uL RBC (4.50-6.50) M/uL Hgb (13.0-18.0) g/dL Hct (40.0-54.0) % MCV (76-96) fL MCH (27.0-32.0) pg MCHC (31.0-35.0) g/dL RDW (11.0-16.0) % Plt Count (150-400) K/uL MPV (6.0-10.0) fL Neut % (Auto) (45.0-70.0) % Lymph % (Auto) (20.0-40.0) % [place] % (Auto) (3.0-10.0) % Eos % (Auto) (1.0-5.0) % Baso % (Auto) (0.0-0.5) % Neut # (Auto) (2.00-7.50) K/uL Lymph # (Auto) (1.50-4.00) K/uL [place] # (Auto) (0.20-0.80) K/uL Eos # (Auto) (0.04-0.40) K/uL Baso # (Auto) (0.02-0.10) K/uL POC Glucose 131 H 207 H 145 H (74-110) mg/dL 10/18/19 10/19/19 10/19/19 Range/Units 18:27 06:44 07:43 WBC 4.7 (4.0-11.0) K/uL RBC 3.46 L (4.50-6.50) M/uL Hgb 9.8 L D (13.0-18.0) g/dL Hct 29.5 L D (40.0-54.0) % MCV 85 (76-96) fL MCH 28.3 (27.0-32.0) pg MCHC 33.2 (31.0-35.0) g/dL RDW 19.2 H (11.0-16.0) % Plt Count 127 L D (150-400) K/uL MPV 9.7 (6.0-10.0) fL Neut % (Auto) 55.9 (45.0-70.0) % Lymph % (Auto) 30.8 (20.0-40.0) % [place] % (Auto) 9.5 (3.0-10.0) % Eos % (Auto) 3.4 (1.0-5.0) % Baso % (Auto) 0.4 (0.0-0.5) % Neut # (Auto) 2.60 (2.00-7.50) K/uL Lymph # (Auto) 1.43 L (1.50-4.00) K/uL [place] # (Auto) 0.44 (0.20-0.80) K/uL Eos # (Auto) 0.16 (0.04-0.40) K/uL Baso # (Auto) 0.02 (0.02-0.10) K/uL POC Glucose 204 H 123 H (74-110) mg/dL [facility] Results - Last 24 hrs: Microbiology 10/17/19 17:45 MRSA Surveillance Culture - Final Nose, Unspecified NO MRSA ISOLATED Med Orders - Current: Current Medications Acetaminophen (Tylenol) 650 mg PO Q4H PRN PRN Reason: analgesia/fever Sodium Chloride (Normal Saline) 1,000 mls @ 125 mls/hr IV ASDIRECTED [facility] Last Admin: 10/17/19 17:06 Dose: 125 mls/hr Potassium Chloride/Dextrose/Sod Cl (D5 1/2 Ns W/ 20 Meq/L Kcl) 1,000 mls @ 125 mls/hr IV ASDIRECTED [facility] Last Admin: 10/18/19 16:45 Dose: 125 mls/hr Loperamide HCl (Imodium) 4 mg PO Q6H PRN PRN Reason: Diarrhea Last Admin: 10/18/19 19:49 Dose: 4 mg Lorazepam (Ativan) 1 mg IVPUSH BEDTIME PRN PRN Reason: Sleep Last Admin: 10/17/19 21:32 Dose: 1 mg Lorazepam (Ativan) 1 mg IVPUSH Q3H PRN PRN Reason: Anxiety Amlodipine Besylate/Benazepril 10/20 Mg Cap Own Med 1 cap PO DAILY [facility] Last Admin: 10/18/19 08:09 Dose: Not Given Non-Formulary Medication (Insulin Aspart [Insulin Aspart Penfill]) 100 unit SQ ASDIRECTED [facility] Potassium Chloride 10 Meq Tab Own Med 0 meq PO DAILY [facility] Last Admin: 10/18/19 10:06 Dose: 10 meq Prochlorperazine ( Compazine) 10 Mg Tab Own Med 0 mg PO Q6H PRN PRN Reason: Nausea Ondansetron HCl (Zofran) 4 mg IVPUSH ONETIME PRN PRN Reason: Nausea/Vomiting Last Admin: 10/17/19 21:33 Dose: 4 mg Discontinued Medications Acetaminophen (Tylenol Extra Strength) 1,000 mg PO ONETIME ONE Stop: 10/17/19 17:03 Last Admin: 10/17/19 18:01 Dose: 1,000 mg Diphenhydramine HCl (Benadryl) 50 mg IVPUSH ONETIME ONE Stop: 10/17/19 17:04 Last Admin: 10/17/19 18:01 Dose: 50 mg Insulin Glargine (Lantus Solostar) 5 units SUBCUT ONETIME ONE Stop: 10/18/19 20:46 Last Admin: 10/18/19 21:00 Dose: 5 units Non-Formulary Medication (Insulin Glarg,Human.Rec.Analog [Lantus Solostar]) 100 unit SQ ASDIRECTED JACKLYN - Exam Quality Assessment: Reports: Central Line/PICC General: Reports: Alert, Oriented HEENT: Reports: Pupils Equal, Pupils Reactive, EOMI, Mucous Membr. Moist/[place] Neck: Reports: Supple Lungs: Reports: Clear to Auscultation, Normal Respiratory Effort Cardiovascular: Reports: Regular Rate, Regular Rhythm GI/Abdominal Exam: Normal Bowel Sounds, Soft, Non-Tender, No Distention, Other ( diarrhea) Skin: Reports: Warm, Dry Neurological: Reports: No New Focal Deficit Psy/Mental Status: Reports: Alert
[2019-10-19] MEDS: AMLODIPINE BESYLATE PO SCH (08:07)
[2019-10-19] MEDS: BENAZEPRIL PO SCH (08:07)
[2019-10-19] MEDS: Loperamide 2 MG Cap PO PRN (08:26)
[2019-10-19] MEDS: POTASSIUM CHLORIDE 10 MEQ PO SCH (08:52)
--- NOTE | 2019-10-19 09:31 | PCM.HP.2 ---
H&P History of Present Illness - General Date of Service: 10/17/19 Admit Problem/Dx: Anemia Weakness Source of Information: Patient, Old Records History Limitations: Reports: No Limitations - History of Present Illness Initial Comments - Free Text/Narative: This patient was sent to this facility by the oncology service at [facility] for IV fluids and a transfusion. He is currently in treatment for stage 4 metastatic pancreatic cancer but felt too unwell to travel there today. Onset of Symptoms: Reports: Gradual Duration of Symptoms: Reports: Getting Worse Generalized Pain Score (Numeric/FACES): 0 - Related Data Allergies/Adverse Reactions: Allergies Allergy/AdvReac Type Severity Reaction Status Date / Time No Known Allergies Allergy Verified 10/17/19 18:58 Home Medications: Home Meds Insulin Aspart [Insulin Aspart Penfill] 100 unit SQ ASDIRECTED 10/17/19 [History ] Insulin Glarg,Human.Rec.Analog [Lantus Solostar] 100 unit SQ ASDIRECTED [History] Potassium Chloride 10 meq PO DAILY 10/17/19 [History] Prochlorperazine [Compazine] 10 mg PO Q6H PRN 10/17/19 [History] Acetaminophen [Tylenol] 650 mg PO Q4H PRN tablet 10/19/19 [Rx] Insulin Aspart [Insulin Aspart Penfill] 100 unit SQ ASDIRECTED 10/19/19 [Rx] Loperamide [Imodium] 4 mg PO Q6H PRN cap 10/19/19 [Rx] Past Medical History HEENT History: Reports: Impaired Vision Cardiovascular History: Reports: High Cholesterol, Hypertension Gastrointestinal History: Reports: Fecal Incontinence, Pancreatitis Endocrine/Metabolic History: Reports: Diabetes, Type II Other Endocrine/Metabolic History: Pancreatic Cancer currently Hematologic History: Reports: None Oncologic (Cancer) History: Reports: Pancreatic - Past Surgical History GI Surgical History: Reports: Colonoscopy Social & Family History - Family History Family Medical History: Noncontributory - Tobacco Use Smoking Status *Q: Never Smoker Second Hand Smoke Exposure: No - Caffeine Use Caffeine Use: Reports: Coffee, Soda - Recreational Drug Use Recreational Drug Use: No H&P Review of Systems - Review of Systems: Review Of Systems: See Below General: Reports: Malaise, Weakness, Fatigue, Decreased Appetite, Weight Loss. Denies: Fever, Diaphoresis HEENT: Reports: No Symptoms Pulmonary: Denies: Shortness of Breath, Wheezing, Pleuritic Chest Pain, Cough Cardiovascular: Reports: Lightheadedness. Denies: Chest Pain, Palpitations, Dyspnea on Exertion, Orthopnea, Syncope Gastrointestinal: Reports: Anorexia, Diarrhea, Decreased Appetite, Stool Incontinence. Denies: Abdominal Pain, Constipation, Nausea, Vomiting Musculoskeletal: Reports: No Symptoms Skin: Reports: No Symptoms Neurological: Reports: No Symptoms Exam - Exam Exam: See Below - Vital Signs Vital Signs: Last Vital Signs Temp 36.4 C 10/19/19 07:51 Pulse 66 10/19/19 07:51 Resp 18 10/19/19 07:51 BP 124/60 10/19/19 07:51 Pulse Ox 97 10/19/19 07:51 Weight: 81.647 kg - Exam Quality Assessment: Central Line/PICC General: Alert, Oriented HEENT: PERRLA, Conjunctiva Clear, EACs Clear, EOMI, Hearing Intact, Mucosa Moist & [place], Nares Patent, Posterior Pharynx Clear, Pupils Equal, Pupils Reactive, TMs Clear Neck: Supple Lungs: Clear to Auscultation, Normal Respiratory Effort Cardiovascular: Regular Rate, Regular Rhythm GI/Abdominal Exam: Soft, Non-Tender, No Distention, Abnormal Bowel Sounds (quiet ; hypoactive) Skin: Warm, Dry, Intact Neuro Extensive - Mental Status: Alert, Oriented x3, Normal Mood/Affect Psychiatric: Alert, Normal Affect - Patient Data Lab Results Last 24 hrs: Laboratory Results - last 24 hr 10/18/19 10/18/19 10/18/19 Range/Units 06:54 11:34 15:42 WBC (4.0-11.0) K/uL RBC (4.50-6.50) M/uL Hgb (13.0-18.0) g/dL Hct (40.0-54.0) % MCV (76-96) fL MCH (27.0-32.0) pg MCHC (31.0-35.0) g/dL RDW (11.0-16.0) % Plt Count (150-400) K/uL MPV (6.0-10.0) fL Neut % (Auto) (45.0-70.0) % Lymph % (Auto) (20.0-40.0) % [place] % (Auto) (3.0-10.0) % Eos % (Auto) (1.0-5.0) % Baso % (Auto) (0.0-0.5) % Neut # (Auto) (2.00-7.50) K/uL Lymph # (Auto) (1.50-4.00) K/uL [place] # (Auto) (0.20-0.80) K/uL Eos # (Auto) (0.04-0.40) K/uL Baso # (Auto) (0.02-0.10) K/uL Sodium (136-145) mmol/L Potassium (3.5-5.1) mmol/L Chloride (98-107) mmol/L Carbon Dioxide (21.0-32.0) mmol/L Anion Gap (5.0-15.0) mmol/L BUN (8-26) mg/dL Creatinine (0.70-1.30) mg/dL Est Cr Clr Drug Dosing mL/min Estimated GFR (MDRD) (>60) MLS/MIN BUN/Creatinine Ratio (6-25) Glucose (74-100) mg/dL POC Glucose 131 H 207 H 145 H (74-110) mg/dL Calcium (8.5-10.1) mg/dL 10/18/19 10/19/19 10/19/19 Range/Units 18:27 06:44 07:43 WBC 4.7 (4.0-11.0) K/uL RBC 3.46 L (4.50-6.50) M/uL Hgb 9.8 L D (13.0-18.0) g/dL Hct 29.5 L D (40.0-54.0) % MCV 85 (76-96) fL MCH 28.3 (27.0-32.0) pg MCHC 33.2 (31.0-35.0) g/dL RDW 19.2 H (11.0-16.0) % Plt Count 127 L D (150-400) K/uL MPV 9.7 (6.0-10.0) fL Neut % (Auto) 55.9 (45.0-70.0) % Lymph % (Auto) 30.8 (20.0-40.0) % [place] % (Auto) 9.5 (3.0-10.0) % Eos % (Auto) 3.4 (1.0-5.0) % Baso % (Auto) 0.4 (0.0-0.5) % Neut # (Auto) 2.60 (2.00-7.50) K/uL Lymph # (Auto) 1.43 L (1.50-4.00) K/uL [place] # (Auto) 0.44 (0.20-0.80) K/uL Eos # (Auto) 0.16 (0.04-0.40) K/uL Baso # (Auto) 0.02 (0.02-0.10) K/uL Sodium (136-145) mmol/L Potassium (3.5-5.1) mmol/L Chloride (98-107) mmol/L Carbon Dioxide (21.0-32.0) mmol/L Anion Gap (5.0-15.0) mmol/L BUN (8-26) mg/dL Creatinine (0.70-1.30) mg/dL Est Cr Clr Drug Dosing mL/min Estimated GFR (MDRD) (>60) MLS/MIN BUN/Creatinine Ratio (6-25) Glucose (74-100) mg/dL POC Glucose 204 H 123 H (74-110) mg/dL Calcium (8.5-10.1) mg/dL 05/20/20 Range/Units 07:43 WBC (4.0-11.0) K/uL RBC (4.50-6.50) M/uL Hgb (13.0-18.0) g/dL Hct (40.0-54.0) % MCV (76-96) fL MCH (27.0-32.0) pg MCHC (31.0-35.0) g/dL RDW (11.0-16.0) % Plt Count (150-400) K/uL MPV (6.0-10.0) fL Neut % (Auto) (45.0-70.0) % Lymph % (Auto) (20.0-40.0) % [place] % (Auto) (3.0-10.0) % Eos % (Auto) (1.0-5.0) % Baso % (Auto) (0.0-0.5) % Neut # (Auto) (2.00-7.50) K/uL Lymph # (Auto) (1.50-4.00) K/uL [place] # (Auto) (0.20-0.80) K/uL Eos # (Auto) (0.04-0.40) K/uL Baso # (Auto) (0.02-0.10) K/uL Sodium 144 (136-145) mmol/L Potassium 3.2 L (3.5-5.1) mmol/L Chloride 110 H (98-107) mmol/L Carbon Dioxide 26.2 (21.0-32.0) mmol/L Anion Gap 11.0 (5.0-15.0) mmol/L BUN 4 L D (8-26) mg/dL Creatinine 0.71 (0.70-1.30) mg/dL Est Cr Clr Drug Dosing 121.38 mL/min Estimated GFR (MDRD) > 60 (>60) MLS/MIN BUN/Creatinine Ratio 5.6 L (6-25) Glucose 125 H (74-100) mg/dL POC Glucose (74-110) mg/dL Calcium 7.4 L (8.5-10.1) mg/dL Result Diagrams: 10/19/19 07:43 10/19/19 07:43 [place] Results Last 24 hrs: Microbiology 10/17/19 17:45 MRSA Surveillance Culture - Final Nose, Unspecified NO MRSA ISOLATED Sepsis Event Note - Evaluation Sepsis Screening Result: No Definite Risk - Focused Exam Vital Signs: Vital Signs Temp Pulse Resp BP Pulse Ox 10/19/19 07:51 36.4 C 66 18 124/60 97 10/19/19 03:53 36.4 C 84 18 134/61 96 10/19/19 00:00 36.3 C 76 20 116/58 L 98 Date Exam was Performed: 10/19/19 Time Exam was Performed: 09:26 Problem List Initiated/Reviewed/Updated: Yes Orders Last 24hrs: Active Orders 24 hr Category Date Time Status Ready for Discharge [RC] PER UNIT ROUTINE Care 10/19/19 07:51 Ordered Full Liquid Diet [DIET] Diet 10/19/19 Breakfast Ordered Loperamide [Imodium] Med 10/18/19 10:15 Active 4 mg PO Q6H PRN Medication Orders Acetaminophen (Tylenol) 650 mg PO Q4H PRN PRN Reason: analgesia/fever Sodium Chloride (Normal Saline) 1,000 mls @ 125 mls/hr IV ASDIRECTED [facility] Last Admin: 10/17/19 17:06 Dose: 125 mls/hr Potassium Chloride/Dextrose/Sod Cl (D5 1/2 Ns W/ 20 Meq/L Kcl) 1,000 mls @ 125 mls/hr IV ASDIRECTED [facility] Last Admin: 10/18/19 16:45 Dose: 125 mls/hr Infusion: 10/18/19 16:11 Dose: 125 mls/hr Admin: 10/18/19 08:11 Dose: 125 mls/hr Infusion: 10/18/19 08:11 Dose: 125 mls/hr Admin: 10/18/19 00:33 Dose: 125 mls/hr Loperamide HCl (Imodium) 4 mg PO Q6H PRN PRN Reason: Diarrhea Last Admin: 10/19/19 08:26 Dose: 4 mg Admin: 10/18/19 19:49 Dose: 4 mg Admin: 10/18/19 10:34 Dose: 4 mg Lorazepam (Ativan) 1 mg IVPUSH BEDTIME PRN PRN Reason: Sleep Last Admin: 10/17/19 21:32 Dose: 1 mg Lorazepam (Ativan) 1 mg IVPUSH Q3H PRN PRN Reason: Anxiety Amlodipine Besylate/Benazepril 10/20 Mg Cap Own Med 1 cap PO DAILY [facility] Last Admin: 10/19/19 08:07 Dose: Not Given Admin: 10/18/19 08:09 Dose: Not Given Non-Formulary Medication (Insulin Aspart [Insulin Aspart Penfill]) 100 unit SQ ASDIRECTED [facility] Potassium Chloride 10 Meq Tab Own Med 0 meq PO DAILY [facility] Last Admin: 10/19/19 08:52 Dose: 10 meq Admin: 10/18/19 10:06 Dose: 10 meq Prochlorperazine ( Compazine) 10 Mg Tab Own Med 0 mg PO Q6H PRN PRN Reason: Nausea Ondansetron HCl (Zofran) 4 mg IVPUSH ONETIME PRN PRN Reason: Nausea/Vomiting Last Admin: 10/17/19 21:33 Dose: 4 mg - Mortality Measure Prognosis:: Poor
== END 2019-10-19 09:40 | disposition home or self-care (01) ==
LOC: LB.MS 16:18
PROVIDERS: ADMIT Nurse Practitioner; ATTEND Nurse Practitioner
DX: K85.90 Acute pancreatitis without necrosis or infection, unspecified (principal); C25.9 Malignant neoplasm of pancreas, unspecified; D64.81 Anemia due to antineoplastic chemotherapy; T45.1X5A Adverse effect of antineoplastic and immunosuppressive drugs, initial encounter; E78.00 Pure hypercholesterolemia, unspecified; I10 Essential (primary) hypertension; E11.9 Type 2 diabetes mellitus without complications; Z79.4 Long term (current) use of insulin
CPT/HCPCS: 36415; 36430; 80048; 82962; 85025; 86850; 86900; 86901; 86920; 86922; 96361; 96374; 96375; A9270-GY; G0378; J1200; J2060; J2405; J3480; J7030; P9016

== ENCOUNTER 2020-01-23 08:31 | Inpatient (IN) | payer MEDICAID ==
[2020-01-23] MEDS ORDERED: Sodium Chloride 0.9% 1,000 ML IV ONE ×2 (10:30→21:21)
[2020-01-23] MEDS: Morphine 4 MG/ML VIAL ONE ×2 (11:35→13:50)
[2020-01-23] MEDS ORDERED: Morphine 2 MG/ML SYRINGE ONE (12:31)
--- NOTE | 2020-01-23 12:38 | EDM.PDOC ---
ED HPI GENERAL MEDICAL PROBLEM - General Chief Complaint: General Stated Complaint: ILL, Weak, Falling Time Seen by Provider: 01/23/20 10:40 Source of Information: Reports: Patient History Limitations: Reports: No Limitations - History of Present Illness INITIAL COMMENTS - FREE TEXT/NARRATIVE: Pt with pancreatic CA and liver mets,presents with SOB, weakness, falling. C/o left chest since fall. Falls quite a bit lately. States he has no energy. Onset: Today, Unknown/Unsure Onset Date: 01/22/20 Duration: Chronic, Getting Worse Location: Reports: Chest Quality: Reports: Sharp Severity: Moderate Improves with: Reports: None Worsens with: Reports: Movement Associated Symptoms: Reports: Malaise, Weakness Abdominal Pain Score (Numeric/FACES): 2 - Related Data Allergies Allergy/AdvReac Type Severity Reaction Status Date / Time No Known Allergies Allergy Verified 01/23/20 10:21 Home Meds: Home Meds Insulin Aspart [Insulin Aspart Penfill] 100 unit SQ ASDIRECTED 10/17/19 [History] Insulin Glarg,Human.Rec.Analog [Lantus Solostar] 100 unit SQ ASDIRECTED 10/17/19 [History] Potassium Chloride 10 meq PO DAILY 10/17/19 [History] Prochlorperazine [Compazine] 10 mg PO Q6H PRN 10/17/19 [History] Acetaminophen [Tylenol] 650 mg PO Q4H PRN tablet 10/19/19 [Rx] Insulin Aspart [Insulin Aspart Penfill] 100 unit SQ ASDIRECTED 10/19/19 [Rx] Loperamide [Imodium] 4 mg PO Q6H PRN cap 10/19/19 [Rx] Past Medical History HEENT History: Reports: Impaired Vision Cardiovascular History: Reports: High Cholesterol, Hypertension Gastrointestinal History: Reports: Fecal Incontinence, Pancreatitis Endocrine/Metabolic History: Reports: Diabetes, Type II Other Endocrine/Metabolic History: Pancreatic Cancer currently Hematologic History: Reports: Blood Transfusion(s) Oncologic (Cancer) History: Reports: Pancreatic - Past Surgical History GI Surgical History: Reports: Colonoscopy Social & Family History - Family History Family Medical History: Noncontributory - Tobacco Use Smoking Status *Q: Never Smoker Second Hand Smoke Exposure: No - Caffeine Use Caffeine Use: Reports: Coffee - Recreational Drug Use Recreational Drug Use: No ED ROS GENERAL - Review of Systems Review Of Systems: See Below Constitutional: Reports: Malaise, Weakness. Denies: Fever HEENT: Reports: No Symptoms Respiratory: Reports: Pleuritic Chest Pain Cardiovascular: Reports: No Symptoms Endocrine: Reports: No Symptoms GI/Abdominal: Reports: Decreased Appetite : Reports: No Symptoms Musculoskeletal: Reports: Muscle Pain Skin: Reports: Jaundice Neurological: Reports: Dizziness Psychiatric: Reports: No Symptoms ED EXAM, GENERAL - Physical Exam Exam: See Below Exam Limited By: No Limitations General Appearance: Alert, WD/WN, Moderate Distress Throat/Mouth: Normal Inspection, Normal Lips, Normal Teeth Head: Atraumatic Neck: Normal Inspection, Supple, Non-Tender Respiratory/Chest: No Respiratory Distress, Lungs Clear, Normal Breath Sounds, No Accessory Muscle Use, Other (left anterolateral rib tenderness). No: Chest Non-Tender Cardiovascular: Normal Peripheral Pulses, Tachycardia GI/Abdominal: Normal Bowel Sounds, Soft, No Distention. No: Guarding, Rigid, Abnormal Bowel Sounds Neurological: Alert, Oriented, CN II-XII Intact, Normal Cognition Psychiatric: Depressed Mood Skin Exam: Warm, Dry Course - Vital Signs Last Recorded V/S: Last Vital Signs Temp 96.8 F L 01/23/20 22:13 Pulse 102 H 01/23/20 22:13 Resp 16 01/23/20 22:13 BP 118/73 01/23/20 22:13 Pulse Ox 100 01/23/20 22:13 - Orders/Labs/Meds Orders: Active Orders 24 hr Category Date Time Status Admission Status [Patient Status] [ADT] Routine ADT 01/23/20 17:49 Active Velazquez Catheter Insertion [Insert Urinary Catheter] [OM. Care 01/23/20 22:30 Ordered PC] Q24H Urinary Catheter Assessment [RC] ASDIRECTED Care 01/23/20 22:28 Active CULTURE BLOOD [BC] Stat Lab 01/23/20 18:00 Ordered CULTURE BLOOD [BC] Stat Lab 01/23/20 18:00 Ordered UA RFX BINU AND CULT IF INDIC [URIN] Stat Lab 01/23/20 22:09 Ordered Sodium Chloride 0.9% [Normal Saline] 1,000 ml Med 01/23/20 22:45 Active IV ASDIRECTED Medication Orders Sodium Chloride (Normal Saline) 1,000 mls @ 100 mls/hr IV ASDIRECTED JACKLYN Last Admin: 01/23/20 22:45 Dose: 100 mls/hr Documented by: LORI Labs: Laboratory Tests 01/23/20 01/23/20 01/23/20 Range/Units 10:10 10:26 10:28 WBC 14.3 H D (4.0-11.0) K/uL RBC 2.25 L (4.50-6.50) M/uL Hgb 7.2 L D (13.0-18.0) g/dL Hct 22.5 L D (40.0-54.0) % MCV 100 H (76-96) fL MCH 32.0 (27.0-32.0) pg MCHC 32.0 (31.0-35.0) g/dL RDW 19.3 H (11.0-16.0) % Plt Count 537 H D (150-400) K/uL MPV 11.5 H (6.0-10.0) fL Add Manual Diff Yes Neutrophils % (Manual) 80.0 H (45.0-70.0) % Lymphocytes % (Manual) 7.0 L (20.0-40.0) % Monocytes % (Manual) 12.0 H (3.0-10.0) % Eosinophils % (Manual) 1.0 (1.0-5.0) % Platelet Estimate Increased Sodium 141 (136-145) mmol/L Potassium 4.4 D (3.5-5.1) mmol/L Chloride 104 (98-107) mmol/L Carbon Dioxide 17.0 L D (21.0-32.0) mmol/L Anion Gap 24.4 H (5.0-15.0) mmol/L BUN 16 D (8-26) mg/dL Creatinine 1.47 H D (0.70-1.30) mg/dL Est Cr Clr Drug Dosing 52.76 mL/min Estimated GFR (MDRD) 48 L (>60) MLS/MIN BUN/Creatinine Ratio 10.9 (6-25) Glucose 277 H D (74-100) mg/dL Lactic Acid 11.4 H (0.4-2.0) mmol/L Calcium 7.7 L (8.5-10.1) mg/dL Total Bilirubin 2.6 H D (0.0-1.0) mg/dL AST 233 H (15-37) U/L ALT 138 H (12-78) U/L Alkaline Phosphatase 497 H (46-116) U/L Total Protein 5.0 L (6.4-8.2) g/dL Albumin 1.9 L (3.4-5.0) g/dL Globulin 3.1 (2.2-4.2) g/dL Albumin/Globulin Ratio 0.6 L (0.8-2.0) Amylase (25-115) U/L Lipase (73-393) U/L Urine Color Urine Appearance (CLEAR) Urine pH (5.0-8.0) Ur Specific [place] (1.003-1.030) Urine Protein (NEGATIVE) mg/dL Urine Glucose (UA) (NEGATIVE) mg/dL Urine Ketones (NEGATIVE) mg/dL Urine Occult Blood (NEGATIVE) Urine Nitrite (NEGATIVE) Urine Bilirubin (NEGATIVE) Urine Urobilinogen (0.2-1.0) E.U./dL Ur Leukocyte Esterase (NEGATIVE) U Hyaline Cast (Auto) /HPF Urine RBC Urine WBC /HPF Calcium Oxalate Crystal /HPF Urine Bacteria /HPF Fine Granular Casts /HPF Blood Type Gel Antibody Screen Antibody Identification 01/23/20 01/23/20 01/23/20 Range/Units 10:33 17:34 22:55 WBC (4.0-11.0) K/uL RBC (4.50-6.50) M/uL Hgb (13.0-18.0) g/dL Hct (40.0-54.0) % MCV (76-96) fL MCH (27.0-32.0) pg MCHC (31.0-35.0) g/dL RDW (11.0-16.0) % Plt Count (150-400) K/uL MPV (6.0-10.0) fL Add Manual Diff Neutrophils % (Manual) (45.0-70.0) % Lymphocytes % (Manual) (20.0-40.0) % Monocytes % (Manual) (3.0-10.0) % Eosinophils % (Manual) (1.0-5.0) % Platelet Estimate Sodium (136-145) mmol/L Potassium (3.5-5.1) mmol/L Chloride (98-107) mmol/L Carbon Dioxide (21.0-32.0) mmol/L Anion Gap (5.0-15.0) mmol/L BUN (8-26) mg/dL Creatinine (0.70-1.30) mg/dL Est Cr Clr Drug Dosing mL/min Estimated GFR (MDRD) (>60) MLS/MIN BUN/Creatinine Ratio (6-25) Glucose (74-100) mg/dL Lactic Acid (0.4-2.0) mmol/L Calcium (8.5-10.1) mg/dL Total Bilirubin (0.0-1.0) mg/dL AST (15-37) U/L ALT (12-78) U/L Alkaline Phosphatase (46-116) U/L Total Protein (6.4-8.2) g/dL Albumin (3.4-5.0) g/dL Globulin (2.2-4.2) g/dL Albumin/Globulin Ratio (0.8-2.0) Amylase 14 L D (25-115) U/L Lipase 60 L D (73-393) U/L Urine Color Yellow Urine Appearance Slightly cloudy (CLEAR) Urine pH 5.0 (5.0-8.0) Ur Specific [place] >= 1.030 (1.003-1.030) Urine Protein 30 H (NEGATIVE) mg/dL Urine Glucose (UA) 100 H (NEGATIVE) mg/dL Urine Ketones 15 H (NEGATIVE) mg/dL Urine Occult Blood Negative (NEGATIVE) Urine Nitrite Positive H (NEGATIVE) Urine Bilirubin Large H (NEGATIVE) Urine Urobilinogen >=8.0 H (0.2-1.0) E.U./dL Ur Leukocyte Esterase Negative (NEGATIVE) U Hyaline Cast (Auto) Rare /HPF Urine RBC Not Reportable Urine WBC 0-5 H /HPF Calcium Oxalate Crystal Rare /HPF Urine Bacteria Few /HPF Fine Granular Casts Rare /HPF Blood Type A POSITIVE Gel Antibody Screen Positive Antibody Identification Cancelled Meds: Medications Generic Name Dose Route Start Last Admin Trade Name Freq PRN Reason Stop Dose Admin Sodium Chloride 1,000 mls @ 100 mls/hr 01/23/20 22:45 01/23/20 22:45 Normal Saline IV 100 mls/hr ASDIRECTED JACKLYN Administration Discontinued Medications Generic Name Dose Route Start Last Admin Trade Name Freq PRN Reason Stop Dose Admin Ceftriaxone Sodium Confirm 01/23/20 21:30 01/23/20 21:34 Rocephin Administered 01/23/20 21:31 Not Given Dose 2 gm .ROUTE .STK-MED ONE Hydromorphone HCl 2 mg 01/23/20 17:27 01/23/20 17:45 Dilaudid IM 01/23/20 17:28 2 mg ONETIME ONE Administration Hydromorphone HCl Confirm 01/23/20 17:32 01/23/20 18:02 Dilaudid Administered 01/23/20 17:33 Not Given Dose 2 mg .ROUTE .STK-MED ONE Hydromorphone HCl 2 mg 01/23/20 17:52 Dilaudid IVPUSH 01/23/20 17:53 ONETIME ONE Hydromorphone HCl 1 mg 01/23/20 17:53 Dilaudid IVPUSH 01/23/20 17:54 ONETIME ONE Sodium Chloride 1,000 mls @ 125 mls/hr 01/23/20 17:30 01/23/20 11:30 Normal Saline IV 125 mls/hr ASDIRECTED JACKLYN Administration Sodium Chloride 1,000 mls @ 999 mls/hr 01/23/20 10:30 01/23/20 18:05 Normal Saline IV 01/23/20 11:30 999 mls/hr .BOLUS ONE Administration Sodium Chloride 1,000 mls @ 500 mls/hr 01/23/20 21:21 01/23/20 21:22 Normal Saline IV 01/23/20 23:20 500 mls/hr .BOLUS ONE Administration Ceftriaxone Sodium 2 gm/ 100 mls @ 200 mls/hr 01/23/20 21:25 01/23/20 21:34 Sodium Chloride IV 01/23/20 21:54 200 mls/hr ONETIME ONE Administration Morphine Sulfate Confirm 01/23/20 11:33 01/23/20 13:50 Morphine Administered 01/23/20 11:34 4 mg Dose Administration 4 mg .ROUTE .STK-MED ONE Morphine Sulfate Confirm 01/23/20 12:31 01/23/20 13:50 Morphine Administered 01/23/20 12:32 2 mg Dose Administration 2 mg .ROUTE .STK-MED ONE Morphine Sulfate 2 mg 01/23/20 16:49 01/23/20 12:45 Morphine IVPUSH 01/23/20 16:50 2 mg ONETIME ONE Administration Morphine Sulfate 4 mg 01/23/20 16:52 01/23/20 11:45 Morphine IVPUSH 01/23/20 16:53 4 mg ONETIME ONE Administration Ondansetron HCl 4 mg 01/23/20 17:30 01/23/20 17:46 Zofran IVPUSH 01/23/20 17:31 4 mg ONETIME ONE Administration Ondansetron HCl Confirm 01/23/20 17:32 01/23/20 20:37 Zofran Administered 01/23/20 17:33 Not Given Dose 4 mg .ROUTE .STK-MED ONE - Re-Assessments/Exams Free Text/Narrative Re-Assessment/Exam: 01/23/20 1300 pt in bed, weak, left chest/rib tenderness Free Text/Narrative Re-Assessment/Exam: 01/23/[address] Corado who states that if possible we could keep Mr Rocha here and transfuse 2 units of PRBC Free Text/Narrative Re-Assessment/Exam: 01/23/20 19:20 Type and cross revealed antibodies in his blood sample and we do not have appropriated blood to transfuse Mr. Rocha; at Dr Corado instructions if unable to transfuse here he should be transferred to [place], [place] 01/23/20 23:23 UA came back after cath urine collected. Nitrite - positive Few bacteria WBC 0-5 sp gr 1.30 01/23/20 23:56 Departure - Departure Time of Disposition: 00:15 Disposition: DC/Tfer to [facility] 02 Preliminary Cause of *Q: Sepsis & Multi System Organ Failure Condition: Serious Clinical Impression: Sepsis - Discharge Information *PRESCRIPTION DRUG MONITORING PROGRAM REVIEWED*: Not Applicable *COPY OF PRESCRIPTION DRUG MONITORING REPORT IN PATIENT BE: Not Applicable Sepsis Event Note (ED) - Focused Exam Vital Signs: Vital Signs Temp Pulse Resp BP Pulse Ox 01/23/20 22:13 96.8 F L 102 H 16 118/73 100 01/23/20 22:10 96.8 F L 102 H 16 118/73 100 01/23/20 19:27 97.8 F 116 H 16 97/64 100 01/23/20 17:01 98.3 F 121 H 16 110/57 L 100 01/23/20 12:23 64 16 128/74 97 - My Orders Last 24 Hours: My Active Orders 01/23/20 17:49 Admission Status [Patient Status] [ADT] Routine 01/23/20 18:00 CULTURE BLOOD [BC] Stat CULTURE BLOOD [BC] Stat 01/23/20 22:09 UA RFX BINU AND CULT IF INDIC [URIN] Stat 01/23/20 22:28 Urinary Catheter Assessment [RC] ASDIRECTED 01/23/20 22:30 Velazquez Catheter Insertion [Insert Urinary Catheter] [OM.PC] Q24H 01/23/20 22:45 Sodium Chloride 0.9% [Normal Saline] 1,000 ml IV ASDIRECTED - Assessment/Plan Last 24 Hours: My Active Orders 01/23/20 17:49 Admission Status [Patient Status] [ADT] Routine 01/23/20 18:00 CULTURE BLOOD [BC] Stat CULTURE BLOOD [BC] Stat 01/23/20 22:09 UA RFX BINU AND CULT IF INDIC [URIN] Stat 01/23/20 22:28 Urinary Catheter Assessment [RC] ASDIRECTED 01/23/20 22:30 Velazquez Catheter Insertion [Insert Urinary Catheter] [OM.PC] Q24H 01/23/20 22:45 Sodium Chloride 0.9% [Normal Saline] 1,000 ml IV ASDIRECTED
--- NOTE | 2020-01-23 13:51 | CR ---
DATE OF SERVICE: 01/23/20 CLINICAL DATA: rib pain AP CHEST: No priors. There is a right sided greg-cath in place with its distal tip in the region of the superior vena cava. The heart size is normal. There is a 5 mm nodular density in the left lower lung. This does correlate to a partially calcified nodule noted on prior CT dated 05/05/19 consistent with a partially calcified granuloma from prior granulomatous disease. It is unchanged in size. The lungs are otherwise clear. No pneumothorax. No pleural effusions. No evidence of acute intrathoracic disease. [id number] [facility]
[2020-01-23] MEDS ORDERED: Morphine 2 MG/ML SYRINGE IVPUSH ONE (16:49)
[2020-01-23] MEDS ORDERED: Morphine 4 MG/ML VIAL IVPUSH ONE (16:52)
[2020-01-23] MEDS ORDERED: HYDROmorphone 2 MG/ML SDV IM ONE (17:27)
[2020-01-23] MEDS ORDERED: Sodium Chloride 0.9% 1,000 ML IV SCH ×2 (17:30→22:45)
[2020-01-23] MEDS ORDERED: Ondansetron 4 MG/2 ML SDV IVPUSH ONE (17:30)
[2020-01-23] MEDS ORDERED: HYDROmorphone 2 MG/ML SDV ONE (17:32)
[2020-01-23] MEDS ORDERED: Ondansetron 4 MG/2 ML SDV ONE (17:32)
[2020-01-23] MEDS ORDERED: HYDROmorphone 2 MG/ML SDV IVPUSH ONE ×2 (17:52→17:53)
[2020-01-23] MEDS ORDERED: cefTRIAXone 2 GM in Sodium Chloride 0.9% 100 ML IV ONE (21:25)
[2020-01-23] MEDS: cefTRIAXone 2 GM Vial ONE ×2 (21:33→21:34)
--- NOTE | 2020-02-03 15:36 | PCM.DCSUM1 ---
Discharge Summary - Hospital Course Free Text/Narrative:: Pt was transferred to [place], [place] due to need for blood transfusion with a antibody incompatibility. HPI Initial Comments: Pt with h/o terminal pancreatic CA who needs transfusion at [facility] in [place], [place] due to blood antibody incompatibility. Diagnosis: Stroke: No Modified Boston Scale: Mod.Sev.Disability ;Unable to Walk/Attend Bodily Needs W/O Assistance Modified Boston Scale Score: 4 - Discharge Data Discharge Date: 01/24/20 Discharge Disposition: DC/Tfer to Acute Hospital 02 Preliminary Cause of *Q: Sepsis & Multi System Organ Failure Condition: Serious - Referral to Home Health Primary Care Physician: PCP None - Discharge Diagnosis/Problem(s) (1) Anemia SNOMED Code(s): 170020365 ICD Code: D64.9 - ANEMIA, UNSPECIFIED Status: Acute Priority: High Qualifiers: Anemia type: other cause Other causes of anemia: antineoplastic chemotherapy Qualified Code(s): D64.81 - Anemia due to antineoplastic chemotherapy; T45.1X5A - Adverse effect of antineoplastic and immunosuppressive drugs, initial encounter (2) Sepsis SNOMED Code(s): 10320789 ICD Code: A41.9 - SEPSIS, UNSPECIFIED ORGANISM Status: Acute Priority: High Qualifiers: Sepsis type: sepsis due to unspecified organism - Discharge Plan *PRESCRIPTION DRUG MONITORING PROGRAM REVIEWED*: Not Applicable *COPY OF PRESCRIPTION DRUG MONITORING REPORT IN PATIENT BE: Not Applicable Home Medications: Home Meds Prochlorperazine Maleate [Compazine] 10 mg PO QID 01/30/20 [History] - Discharge Summary/Plan Comment DC Time >30 min.: No - General Info Date of Service: 01/24/20 - Review of Systems General: Reports: Weakness HEENT: Reports: No Symptoms Pulmonary: Reports: Shortness of Breath Cardiovascular: Reports: Lightheadedness Gastrointestinal: Reports: Abdominal Pain Skin: Reports: Jaundice Neurological: Reports: Dizziness Psychiatric: Reports: Depression - Patient Data Vitals - Most Recent: Last Vital Signs Temp 96.8 F L 01/23/20 22:13 Pulse 102 H 01/23/20 22:13 Resp 16 01/23/20 22:13 BP 118/73 01/23/20 22:13 Pulse Ox 100 01/23/20 22:13 Weight - Most Recent: 162 lb Med Orders - Current: Current Medications Discontinued Medications Ceftriaxone Sodium (Rocephin) Confirm Administered Dose 2 gm .ROUTE .STK-MED ONE Stop: 01/23/20 21:31 Last Admin: 01/23/20 21:34 Dose: Not Given Documented by: Hydromorphone HCl (Dilaudid) 2 mg IM ONETIME ONE Stop: 01/23/20 17:28 Last Admin: 01/23/20 17:45 Dose: 2 mg Documented by: Hydromorphone HCl (Dilaudid) Confirm Administered Dose 2 mg .ROUTE .STK-MED ONE Stop: 01/23/20 17:33 Last Admin: 01/23/20 18:02 Dose: Not Given Documented by: Hydromorphone HCl (Dilaudid) 2 mg IVPUSH ONETIME ONE Stop: 01/23/20 17:53 Hydromorphone HCl (Dilaudid) 1 mg IVPUSH ONETIME ONE Stop: 01/23/20 17:54 Sodium Chloride (Normal Saline) 1,000 mls @ 125 mls/hr IV ASDIRECTED [facility] Last Admin: 01/23/20 11:30 Dose: 125 mls/hr Documented by: Sodium Chloride (Normal Saline) 1,000 mls @ 999 mls/hr IV .BOLUS ONE Stop: 01/23/20 11:30 Last Admin: 01/23/20 18:05 Dose: 999 mls/hr Documented by: Sodium Chloride (Normal Saline) 1,000 mls @ 500 mls/hr IV .BOLUS ONE Stop: 01/23/20 23:20 Last Admin: 01/23/20 21:22 Dose: 500 mls/hr Documented by: Ceftriaxone Sodium 2 gm/ (Sodium Chloride) 100 mls @ 200 mls/hr IV ONETIME ONE Stop: 01/23/20 21:54 Last Admin: 01/23/20 21:34 Dose: 200 mls/hr Documented by: Sodium Chloride (Normal Saline) 1,000 mls @ 100 mls/hr IV ASDIRECTED [facility] Last Admin: 01/23/20 22:45 Dose: 100 mls/hr Documented by: Morphine Sulfate (Morphine) Confirm Administered Dose 4 mg .ROUTE .STK-MED ONE Stop: 01/23/20 11:34 Last Admin: 01/23/20 13:50 Dose: 4 mg Documented by: Morphine Sulfate (Morphine) Confirm Administered Dose 2 mg .ROUTE .STK-MED ONE Stop: 01/23/20 12:32 Last Admin: 01/23/20 13:50 Dose: 2 mg Documented by: Morphine Sulfate (Morphine) 2 mg IVPUSH ONETIME ONE Stop: 01/23/20 16:50 Last Admin: 01/23/20 12:45 Dose: 2 mg Documented by: Morphine Sulfate (Morphine) 4 mg IVPUSH ONETIME ONE Stop: 01/23/20 16:53 Last Admin: 01/23/20 11:45 Dose: 4 mg Documented by: Ondansetron HCl (Zofran) 4 mg IVPUSH ONETIME ONE Stop: 01/23/20 17:31 Last Admin: 01/23/20 17:46 Dose: 4 mg Documented by: Ondansetron HCl (Zofran) Confirm Administered Dose 4 mg .ROUTE .STK-MED ONE Stop: 01/23/20 17:33 Last Admin: 01/23/20 20:37 Dose: Not Given Documented by: - Exam General: Reports: Alert, Oriented, Severe Distress HEENT: Reports: Pupils Equal, Scleral Icterus Neck: Reports: Supple, Trachea Midline Lungs: Reports: Clear to Auscultation GI/Abdominal Exam: Soft, Tender Skin: Reports: Warm, Dry, Intact Neurological: Reports: No New Focal Deficit Psy/Mental Status: Reports: Depressed
== END 2020-01-24 00:27 | DRG 872 ==
LOC: LB.ED 08:31 → LB.MS 17:49 → LB.ED 01-24 00:40
PROVIDERS: ADMIT Physician Assistant Surgical; ATTEND Physician Assistant Surgical
DX: A41.9 Sepsis, unspecified organism (principal); C25.9 Malignant neoplasm of pancreas, unspecified; H54.7 Unspecified visual loss; E78.00 Pure hypercholesterolemia, unspecified; I10 Essential (primary) hypertension; R15.9 Full incontinence of feces; E11.9 Type 2 diabetes mellitus without complications; D64.81 Anemia due to antineoplastic chemotherapy; T45.1X5A Adverse effect of antineoplastic and immunosuppressive drugs, initial encounter; Z79.4 Long term (current) use of insulin; Z79.899 Other long term (current) drug therapy
CPT/HCPCS: 36415; 71045; 80053; 81001; 82150; 83605; 83690; 85025; 86850; 86900; 86901; 87040; J0696; J1170; J2270; J2405; J7030; J7050

== ENCOUNTER 2020-01-30 11:48 | Inpatient (IN) | payer MEDICAID ==
[2020-01-30] MEDS ORDERED: diphenhydrAMINE 50 MG/ML SDV IVPUSH PRN (16:17)
[2020-01-30] MEDS ORDERED: Naloxone 2 MG/2 ML Syringe IVPUSH PRN (16:17)
[2020-01-30] MEDS ORDERED: diphenhydrAMINE 25 MG Cap PO PRN (16:17)
--- NOTE | 2020-01-30 16:20 | PCM.HP.2 ---
H&P History of Present Illness - General Date of Service: 01/30/20 Admit Problem/Dx: Admission Diagnosis/Problem Admission Diagnosis/Problem Comfort measures only status Source of Information: Old Records - History of Present Illness Initial Comments - Free Text/Narative: This is a 64yo M with metastatic Pancreatic carcinoma. He has seen Oncology and has had prior treatment with chemotherapy and now has decided to continue with comfort care measures. Onset of Symptoms: Reports: Gradual Duration of Symptoms: Reports: Constant Location: Reports: Generalized Improves with: Reports: None Worsens with: Reports: None - Related Data Allergies/Adverse Reactions: Allergies Allergy/AdvReac Type Severity Reaction Status Date / Time No Known Allergies Allergy Verified 01/30/20 19:12 Home Medications: Home Meds Prochlorperazine Maleate [Compazine] 10 mg PO QID 01/30/20 [History] Past Medical History HEENT History: Reports: Impaired Vision Cardiovascular History: Reports: High Cholesterol, Hypertension Gastrointestinal History: Reports: Fecal Incontinence, Pancreatitis Endocrine/Metabolic History: Reports: Diabetes, Type II Other Endocrine/Metabolic History: Pancreatic Cancer currently Hematologic History: Reports: Blood Transfusion(s) Oncologic (Cancer) History: Reports: Pancreatic - Past Surgical History GI Surgical History: Reports: Colonoscopy Social & Family History - Family History Family Medical History: Noncontributory - Caffeine Use Caffeine Use: Reports: Coffee H&P Review of Systems - Review of Systems: Review Of Systems: Comprehensive ROS is negative, except as noted in HPI. Exam - Exam Exam: See Below - Exam General: Alert, Oriented, Cooperative HEENT: PERRLA, Conjunctiva Clear, EACs Clear Neck: Supple, Trachea Midline Lungs: Rhonchi Cardiovascular: Regular Rate, Regular Rhythm GI/Abdominal Exam: Soft, Non-Tender, Abnormal Bowel Sounds (decreased) Back Exam: Normal Inspection Extremities: Normal Inspection Skin: Dry, Intact Neuro Extensive - Mental Status: Alert, Oriented x3 Problem List Initiated/Reviewed/Updated: Yes Orders Last 24hrs: Active Orders 24 hr Category Date Time Status Admission Status [Patient Status] [ADT] Routine ADT 01/30/20 11:58 Active Communication Order [RC] Per Unit Routine Care 01/30/20 16:18 Active EMERGENCY VEHICLE OPERATOR Record [RC] Q4H Care 01/30/20 16:18 Active Vital Signs [RC] PER UNIT ROUTINE Care 01/30/20 16:18 Active Morphine PF [Morphine EMERGENCY VEHICLE OPERATOR 30 MG in 30 ML] Med 01/30/20 16:30 Ordered See Protocol IV ASDIRECTED Naloxone [Narcan] Med 01/30/20 16:17 Ordered 0.04 mg IVPUSH Q3M PRN Ondansetron [Zofran] Med 01/30/20 16:17 Ordered 4 mg IVPUSH Q6H PRN diphenhydrAMINE [Benadryl] Med 01/30/20 16:17 Ordered 25 mg IVPUSH Q6H PRN diphenhydrAMINE [Benadryl] Med 01/30/20 16:17 Ordered 25 mg PO Q6H PRN Pulse Oximetry Continuous Monitoring [OM.PC] Routine Oth 01/30/20 16:18 Ordered Medication Orders Diphenhydramine HCl (Benadryl) 25 mg IVPUSH Q6H PRN PRN Reason: Itching Diphenhydramine HCl (Benadryl) 25 mg PO Q6H PRN PRN Reason: Itching Morphine Sulfate (Morphine Scrap Cutter 30 Mg In 30 Ml) 0 mg IV ASDIRECTED JACKLYN; Protocol Naloxone HCl (Narcan) 0.04 mg IVPUSH Q3M PRN PRN Reason: Respiratory Depression Ondansetron HCl (Zofran) 4 mg IVPUSH Q6H PRN PRN Reason: Nausea/Vomiting Assessment/Plan Comment:: Patient to stay for comforts care and pain management. He will be started on EMERGENCY VEHICLE OPERATOR pump and monitoring regularly. He has some abdominal discomfort at this time.
[2020-01-30] MEDS ORDERED: Morphine PF 30 MG/30 ML PCA Vial IV SCH (16:30)
[2020-01-30] MEDS ORDERED: Tuberculin, PPD 5 Units/0.1 ML 1 ML MDV IDERM ONE (18:39)
[2020-01-30] MEDS: Morphine PF 30 MG/30 ML PCA Vial IV SCH (19:21)
[2020-01-30] MEDS: Sodium Chloride 0.9% 250 ML IV SCH (19:30)
[2020-01-30] MEDS ORDERED: FLU Vacc QS2020-21 36MOS UP/PF 60 MCG/0.5 ML Syringe IM ONE (20:00)
[2020-01-31] MEDS: Sodium Chloride 0.9% 250 ML IV SCH ×3 (03:24→19:03)
[2020-02-01] MEDS: Sodium Chloride 0.9% 250 ML IV SCH ×2 (02:34→10:45)
[2020-02-02] MEDS: Sodium Chloride 0.9% 250 ML IV SCH (02:24)
[2020-02-02] MEDS: Morphine PF 30 MG/30 ML PCA Vial IV SCH (02:28)
[2020-02-03] MEDS: Sodium Chloride 0.9% 250 ML IV SCH (11:37)
[2020-02-04] MEDS: Sodium Chloride 0.9% 500 ML IV SCH (13:35)
[2020-02-04] MEDS: Morphine PF 30 MG/30 ML PCA Vial IV SCH (16:13)
[2020-02-06] MEDS: Sodium Chloride 0.9% 500 ML IV SCH (16:00)
--- NOTE | 2020-02-07 10:25 | PCM.PN ---
- General Info Date of Service: 02/07/20 Subjective Update: Patient's pain under control with SIX PACK PACKER. He notes increased weakness over the past week. Denies any other concerns at this time. - Review of Systems General: Reports: Weakness HEENT: Reports: No Symptoms Pulmonary: Reports: No Symptoms Cardiovascular: Reports: No Symptoms Gastrointestinal: Reports: No Symptoms Genitourinary: Reports: No Symptoms Musculoskeletal: Reports: No Symptoms - Patient Data Vitals - Most Recent: Last Vital Signs Temp 36.4 C 02/06/20 10:00 Pulse 60 02/06/20 10:00 Resp 16 02/06/20 10:00 BP 145/76 H 02/06/20 10:00 Pulse Ox 100 02/06/20 10:00 Weight - Most Recent: 73.936 kg I&O - Last 24 Hours: Intake & Output 02/06/20 02/07/20 02/07/20 22:59 06:59 14:59 Intake Total 360 360 Balance 360 360 Med Orders - Current: Current Medications Diphenhydramine HCl (Benadryl) 25 mg IVPUSH Q6H PRN PRN Reason: Itching Diphenhydramine HCl (Benadryl) 25 mg PO Q6H PRN PRN Reason: Itching Sodium Chloride (Normal Saline) 500 mls @ 30 mls/hr IV ASDIRECTED [facility] Last Admin: 02/06/20 16:00 Dose: 30 mls/hr Documented by: Morphine Sulfate (Morphine Bed Maker 30 Mg In 30 Ml) 30 mg IV ASDIRECTED [facility]; Protocol Last Admin: 02/04/20 16:13 Dose: 30 mg Documented by: Naloxone HCl (Narcan) 0.04 mg IVPUSH Q3M PRN PRN Reason: Respiratory Depression Ondansetron HCl (Zofran) 4 mg IVPUSH Q6H PRN PRN Reason: Nausea/Vomiting Sodium Chloride (Saline Flush) 5 ml FLUSH SEECOMMENT PRN PRN Reason: Other Discontinued Medications Sodium Chloride (Normal Saline) 250 mls @ 30 mls/hr IV ASDIRECTED [facility] Last Admin: 02/03/20 11:37 Dose: 30 mls/hr Documented by: Influenza Virus Vaccine (Pharmacy To Dose - Influenza Vaccine) 1 each IM ONETIME ONE Stop: 02/15/20 19:49 Influenza Virus Vaccine (Afluria Quad 2019- (3yr Up)) 60 mcg IM .ONCE ONE Stop: 01/30/20 20:01 Morphine Sulfate (Morphine Bed Maker 30 Mg In 30 Ml) 0 mg IV ASDIRECTED [facility]; Protocol Tuberculin PPD (Aplisol) 5 unit IDERM ONETIME ONE Stop: 01/30/20 18:40 Last Admin: 01/30/20 19:34 Dose: 5 unit Documented by: - Exam General: Alert, Oriented, Cooperative HEENT: Pupils Equal, Pupils Reactive, EOMI Lungs: Clear to Auscultation, Normal Respiratory Effort Cardiovascular: Regular Rate, Regular Rhythm GI/Abdominal Exam: Abnormal Bowel Sounds (decreased) Neurological: No New Focal Deficit Psy/Mental Status: Alert, Normal Affect, Normal Mood Sepsis Event Note - Evaluation Sepsis Screening Result: No Definite Risk - Problem List & Annotations (1) Comfort measures only status SNOMED Code(s): 38464945558301 Code(s): Z51.5 - ENCOUNTER FOR PALLIATIVE CARE Status: Acute Priority: High Current Visit: Yes (2) Pain managed using patient-controlled analgesia (SIX PACK PACKER) SNOMED Code(s): 864055953 Code(s): R52 - PAIN, UNSPECIFIED Status: Acute Priority: High Current Visit: Yes (3) Metastasis from pancreatic cancer SNOMED Code(s): 169973402 Code(s): C79.9 - SECONDARY MALIGNANT NEOPLASM OF UNSPECIFIED SITE; C25.9 - MALIGNANT NEOPLASM OF PANCREAS, UNSPECIFIED Status: Acute Priority: High Current Visit: Yes - Problem List Review Problem List Initiated/Reviewed/Updated: Yes - Plan Plan:: Patient to stay for comforts care and pain management. He will be started on SIX PACK PACKER pump and monitoring regularly. He has some abdominal discomfort at this time.
[2020-02-08] MEDS: Sodium Chloride 0.9% 500 ML IV SCH (11:13)
[2020-02-09] MEDS: Morphine PF 30 MG/30 ML PCA Vial IV SCH (05:30)
[2020-02-11] MEDS: Morphine PF 30 MG/30 ML PCA Vial IV SCH (08:28)
[2020-02-12] MEDS: Sodium Chloride 0.9% 500 ML IV SCH (06:00)
[2020-02-12] MEDS: Ondansetron 4 MG/2 ML SDV IVPUSH PRN ×2 (07:43→17:57)
[2020-02-12] MEDS: Morphine PF 30 MG/30 ML PCA Vial IV SCH (22:20)
[2020-02-13] MEDS: Sodium Chloride 0.9% 500 ML IV SCH (01:20)
[2020-02-13] MEDS: Ondansetron 4 MG/2 ML SDV IVPUSH PRN (07:48)
--- NOTE | 2020-02-13 09:13 | PCM.PN ---
- General Info Date of Service: 02/13/20 Subjective Update: Patient feels ok and notes that he does not feel as well as last week. He notes having to use his [employer]PERATOR more often and having it adjusted this weekend. He denies any issues but notes decreased appetite and increased nausea after eating. He was placed on zofran this weekend as well. Functional Status: Reports: Pain Controlled, Tolerating Diet - Review of Systems General: Reports: Weakness, Fatigue HEENT: Reports: No Symptoms Pulmonary: Reports: No Symptoms Cardiovascular: Reports: No Symptoms Gastrointestinal: Reports: Decreased Appetite Genitourinary: Reports: No Symptoms Musculoskeletal: Reports: No Symptoms Skin: Reports: No Symptoms Neurological: Reports: Difficulty Walking, Weakness - Patient Data Vitals - Most Recent: Last Vital Signs Temp 36.0 C L 02/12/20 09:37 Pulse 55 L 02/11/20 10:00 Resp 16 02/12/20 09:37 BP 137/72 02/12/20 09:37 Pulse Ox 100 02/12/20 09:37 Weight - Most Recent: 73.936 kg I&O - Last 24 Hours: Intake & Output 02/12/20 02/13/20 02/13/20 22:59 06:59 14:59 Intake Total 360 360 Balance 360 360 Med Orders - Current: Current Medications Diphenhydramine HCl (Benadryl) 25 mg IVPUSH Q6H PRN PRN Reason: Itching Diphenhydramine HCl (Benadryl) 25 mg PO Q6H PRN PRN Reason: Itching Sodium Chloride (Normal Saline) 500 mls @ 30 mls/hr IV ASDIRECTED [facility] Last Admin: 02/13/20 01:20 Dose: 30 mls/hr Documented by: Morphine Sulfate (Morphine Phonograph Mechanic 30 Mg In 30 Ml) 30 mg IV ASDIRECTED [facility]; Protocol Last Admin: 02/12/20 22:20 Dose: 30 mg Documented by: Naloxone HCl (Narcan) 0.04 mg IVPUSH Q3M PRN PRN Reason: Respiratory Depression Ondansetron HCl (Zofran) 4 mg IVPUSH Q6H PRN PRN Reason: Nausea/Vomiting Last Admin: 02/13/20 07:48 Dose: 4 mg Documented by: Sodium Chloride (Saline Flush) 5 ml FLUSH SEECOMMENT PRN PRN Reason: Other Discontinued Medications Sodium Chloride (Normal Saline) 250 mls @ 30 mls/hr IV ASDIRECTED [facility] Last Admin: 02/03/20 11:37 Dose: 30 mls/hr Documented by: Influenza Virus Vaccine (Pharmacy To Dose - Influenza Vaccine) 1 each IM ONETIME ONE Stop: 02/15/20 19:49 Influenza Virus Vaccine (Afluria Quad 2020-21 (3yr Up)) 60 mcg IM .ONCE ONE Stop: 01/30/20 20:01 Morphine Sulfate (Morphine Phonograph Mechanic 30 Mg In 30 Ml) 0 mg IV ASDIRECTED [facility]; Protocol Tuberculin PPD (Aplisol) 5 unit IDERM ONETIME ONE Stop: 01/30/20 18:40 Last Admin: 01/30/20 19:34 Dose: 5 unit Documented by: - Exam General: Alert, Oriented, Cooperative HEENT: Pupils Equal, Pupils Reactive, EOMI Neck: Supple Lungs: Clear to Auscultation, Normal Respiratory Effort Cardiovascular: Regular Rate, Regular Rhythm GI/Abdominal Exam: Soft, Non-Tender Extremities: Normal Inspection Peripheral Pulses: 2+: Dorsalis Pedis (L), Dorsalis Pedis (R) Skin: Warm, Dry, Intact Sepsis Event Note - Evaluation Sepsis Screening Result: No Definite Risk - Problem List & Annotations (1) Comfort measures only status SNOMED Code(s): 97924975798890 Code(s): Z51.5 - ENCOUNTER FOR PALLIATIVE CARE Status: Acute Priority: High Current Visit: Yes (2) Pain managed using patient-controlled analgesia ([employer]PERATOR) SNOMED Code(s): 292710045 Code(s): R52 - PAIN, UNSPECIFIED Status: Acute Priority: High Current Visit: Yes (3) 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 He will be started on [employer]PERATOR pump and monitoring regularly. He has some abdominal discomfort at this time. 02/13/20 Patient stable, on increased basal morphine [employer] this past weekend, addition of zofran this last weekend. No further changes at this time and no concerns. Cont inue comfort cares.
[2020-02-14] MEDS: Morphine PF 30 MG/30 ML PCA Vial IV SCH (02:30)
[2020-02-14] MEDS: Ondansetron 4 MG/2 ML SDV IVPUSH PRN (08:35)
[2020-02-15] MEDS: Ondansetron 4 MG/2 ML SDV IVPUSH PRN ×3 (07:45→17:16)
[2020-02-15] MEDS: Morphine PF 30 MG/30 ML PCA Vial IV SCH (07:45)
[2020-02-16] MEDS: Sodium Chloride 0.9% 500 ML IV SCH (04:26)
[2020-02-16] MEDS: Morphine PF 30 MG/30 ML PCA Vial IV SCH (09:26)
[2020-02-17] MEDS: Sodium Chloride 0.9% 500 ML IV SCH ×2 (01:34→21:31)
[2020-02-17] MEDS: Morphine PF 30 MG/30 ML PCA Vial IV SCH (15:00)
[2020-02-17] MEDS: Ondansetron 4 MG/2 ML SDV IVPUSH PRN (17:15)
[2020-02-18] MEDS: Ondansetron 4 MG/2 ML SDV IVPUSH PRN (08:01)
[2020-02-18] MEDS: Sodium Chloride 0.9% 500 ML IV SCH ×2 (18:44→18:45)
[2020-02-18] MEDS: Morphine PF 30 MG/30 ML PCA Vial IV SCH (18:56)
[2020-02-19] MEDS: Sodium Chloride 0.9% 500 ML IV SCH (06:41)
[2020-02-19] MEDS: Morphine PF 30 MG/30 ML PCA Vial IV SCH (22:55)
--- NOTE | 2020-02-20 13:56 | PCM.PN ---
- General Info Date of Service: 02/20/20 Subjective Update: Patient continues to have abdominal discomfort that is controlled by his [employer] Morphine pump. He notes he has been using it more often and that he notices the abdominal symptoms when he doesn't use it as regularly. He notes his appetite is decreasing and nothing tastes good anymore. He is getting weaker and weaker and not able to get up out of bed. - Review of Systems General: Reports: Weakness HEENT: Reports: No Symptoms Pulmonary: Reports: No Symptoms Cardiovascular: Reports: No Symptoms Gastrointestinal: Reports: Abdominal Pain, Decreased Appetite Genitourinary: Reports: No Symptoms Musculoskeletal: Reports: No Symptoms Neurological: Reports: Weakness Psychiatric: Reports: No Symptoms - Patient Data Vitals - Most Recent: Last Vital Signs Temp 36.6 C 02/20/20 09:37 Pulse 60 02/20/20 09:37 Resp 18 02/20/20 09:37 BP 133/73 02/20/20 09:37 Pulse Ox 99 02/20/20 09:37 Weight - Most Recent: 73.936 kg I&O - Last 24 Hours: Intake & Output 02/19/20 02/20/20 02/20/20 22:59 06:59 14:59 Intake Total 360 330 Balance 360 330 Med Orders - Current: Current Medications Diphenhydramine HCl (Benadryl) 25 mg IVPUSH Q6H PRN PRN Reason: Itching Diphenhydramine HCl (Benadryl) 25 mg PO Q6H PRN PRN Reason: Itching Sodium Chloride (Normal Saline) 500 mls @ 30 mls/hr IV ASDIRECTED [facility] Last Admin: 02/19/20 06:41 Dose: 30 mls/hr Documented by: Morphine Sulfate (Morphine New Car Inspector 30 Mg In 30 Ml) 30 mg IV ASDIRECTED [facility]; Protocol Last Admin: 02/19/20 22:55 Dose: 30 mg Documented by: Naloxone HCl (Narcan) 0.04 mg IVPUSH Q3M PRN PRN Reason: Respiratory Depression Ondansetron HCl (Zofran) 4 mg IVPUSH Q6H PRN PRN Reason: Nausea/Vomiting Last Admin: 02/18/20 08:01 Dose: 4 mg Documented by: Sodium Chloride (Saline Flush) 5 ml FLUSH SEECOMMENT PRN PRN Reason: Other Discontinued Medications Sodium Chloride (Normal Saline) 250 mls @ 30 mls/hr IV ASDIRECTED [facility] Last Admin: 02/03/20 11:37 Dose: 30 mls/hr Documented by: Influenza Virus Vaccine (Pharmacy To Dose - Influenza Vaccine) 1 each IM ONETIME ONE Stop: 02/15/20 19:49 Influenza Virus Vaccine (Afluria Quad 2019- (3yr Up)) 60 mcg IM .ONCE ONE Stop: 01/30/20 20:01 Morphine Sulfate (Morphine New Car Inspector 30 Mg In 30 Ml) 0 mg IV ASDIRECTED [facility]; Protocol Tuberculin PPD (Aplisol) 5 unit IDERM ONETIME ONE Stop: 01/30/20 18:40 Last Admin: 01/30/20 19:34 Dose: 5 unit Documented by: - Exam General: Alert, Oriented, Cooperative HEENT: Pupils Equal, Pupils Reactive, EOMI Neck: Supple Lungs: Clear to Auscultation, Normal Respiratory Effort Cardiovascular: Regular Rate, Regular Rhythm Extremities: Normal Inspection Skin: Warm, Dry, Intact Psy/Mental Status: Alert, Normal Affect, Normal Mood Sepsis Event Note - Evaluation Sepsis Screening Result: No Definite Risk - Focused Exam Vital Signs: Vital Signs Temp Pulse Resp BP Pulse Ox 02/20/20 09:37 36.6 C 60 18 133/73 99 - Problem List & Annotations (1) Comfort measures only status SNOMED Code(s): 24892001207628 Code(s): Z51.5 - ENCOUNTER FOR PALLIATIVE CARE Status: Acute Priority: High Current Visit: Yes (2) Pain managed using patient-controlled analgesia ([employer]) SNOMED Code(s): 985431478 Code(s): R52 - PAIN, UNSPECIFIED Status: Acute Priority: High Current Visit: Yes (3) Metastasis from pancreatic cancer SNOMED Code(s): 356530168 Code(s): C79.9 - SECONDARY MALIGNANT NEOPLASM OF UNSPECIFIED SITE; C25.9 - MALIGNANT NEOPLASM OF PANCREAS, UNSPECIFIED Status: Acute Priority: High Current Visit: Yes - Problem List Review Problem List Initiated/Reviewed/Updated: Yes - Plan Plan:: Patient to stay for comforts care and pain management. He will be started on [employer] pump and monitoring regularly. He has some abdominal discomfort at this time. 02/13/20 Patient stable, on increased basal morphine [employer]ER this past weekend, addition of zofran this last weekend. No further changes at this time and no concerns. Continue comfort cares. 02/20/20 Patient stable. Patient continually on [employer] TEACHER which has helped his pain. He has been using more zofran due to increased nausea. Patient continues on comfort cares with life expectancy less than 2 months.
[2020-02-20] MEDS: Sodium Chloride 0.9% 500 ML IV SCH (15:56)
[2020-02-21] MEDS: Morphine PF 30 MG/30 ML PCA Vial IV SCH (02:19)
[2020-02-21] MEDS: Sodium Chloride 0.9% 500 ML IV SCH (07:44)
[2020-02-21] MEDS: Ondansetron 4 MG/2 ML SDV IVPUSH PRN ×3 (07:45→20:35)
[2020-02-22] MEDS: Sodium Chloride 0.9% 500 ML IV SCH ×2 (00:30→18:00)
[2020-02-22] MEDS: Ondansetron 4 MG/2 ML SDV IVPUSH PRN ×3 (05:22→14:52)
[2020-02-22] MEDS: Morphine PF 30 MG/30 ML PCA Vial IV SCH (08:08)
[2020-02-22] MEDS: Metoclopramide 10 MG/2 ML SDV IV SCH ×3 (10:00→20:46)
[2020-02-23] MEDS: Ondansetron 4 MG/2 ML SDV IVPUSH PRN ×5 (00:10→21:03)
[2020-02-23] MEDS: Metoclopramide 10 MG/2 ML SDV IV SCH ×3 (07:51→20:58)
[2020-02-23] MEDS ORDERED: Dextrose 5%-0.9% NaCl 500 ML IV SCH (09:30)
[2020-02-23] MEDS: Sodium Chloride 0.9% 500 ML IV SCH (10:45)
[2020-02-23] MEDS: Morphine PF 30 MG/30 ML PCA Vial IV SCH (12:37)
--- NOTE | 2020-02-23 17:32 | PCM.SN.2 ---
- Free Text/Narrative Note: Patient feeling worse and having issues with getting up and weakness. Discussed pain management and fluid management. Patient Basal rate increased to 1.5mcg/hr. Small 500mL bolus given for patient concerns of dizziness and dryness. Patient remains on end of life cares with life expectancy of less than 2 months.
[2020-02-24] MEDS: Sodium Chloride 0.9% 500 ML IV SCH ×2 (05:58→22:14)
[2020-02-24] MEDS: Metoclopramide 10 MG/2 ML SDV IV SCH ×3 (07:34→22:11)
[2020-02-24] MEDS: Ondansetron 4 MG/2 ML SDV IVPUSH PRN (11:40)
[2020-02-24] MEDS: Morphine PF 30 MG/30 ML PCA Vial IV SCH (14:55)
[2020-02-25] MEDS: Metoclopramide 10 MG/2 ML SDV IV SCH ×3 (08:26→20:09)
[2020-02-25] MEDS: Ondansetron 4 MG/2 ML SDV IVPUSH PRN ×2 (09:43→16:39)
[2020-02-25] MEDS: Morphine PF 30 MG/30 ML PCA Vial IV SCH (11:52)
[2020-02-26] MEDS: Sodium Chloride 0.9% 500 ML IV SCH (06:15)
[2020-02-26] MEDS: Morphine PF 30 MG/30 ML PCA Vial IV SCH (06:21)
[2020-02-26] MEDS: Metoclopramide 10 MG/2 ML SDV IV SCH ×3 (07:34→19:04)
[2020-02-27] MEDS: Sodium Chloride 0.9% 500 ML IV SCH ×2 (03:10→16:16)
[2020-02-27] MEDS: Metoclopramide 10 MG/2 ML SDV IV SCH ×3 (08:25→20:01)
[2020-02-27] MEDS: Ondansetron 4 MG/2 ML SDV IVPUSH PRN (08:32)
[2020-02-27] MEDS: Pantoprazole 40 MG Vial IVPUSH SCH (08:45)
--- NOTE | 2020-02-27 18:56 | PCM.PN ---
- General Info Date of Service: 02/27/20 Subjective Update: Patient notes increased weakness and nausea. He has been having more difficulty with movement, more dizziness and more nausea. He has been unable to eat much due to nausea and decreased appetite the past week. He denies any acute pain but overall discomfort has increased. Functional Status: Reports: Pain Controlled - Review of Systems General: Reports: Weakness, Fatigue HEENT: Reports: No Symptoms Pulmonary: Reports: No Symptoms Cardiovascular: Reports: No Symptoms Gastrointestinal: Reports: Abdominal Pain, Decreased Appetite, Nausea, Vomiting Genitourinary: Reports: No Symptoms Musculoskeletal: Reports: No Symptoms Skin: Reports: No Symptoms Neurological: Reports: Weakness - Patient Data Vitals - Most Recent: Last Vital Signs Temp 36.4 C 02/27/20 10:00 Pulse 58 L 02/27/20 10:00 Resp 16 02/27/20 10:00 BP 147/62 H 02/27/20 10:00 Pulse Ox 100 02/27/20 10:00 Weight - Most Recent: 73.936 kg I&O - Last 24 Hours: Intake & Output 02/27/20 02/27/20 02/27/20 06:59 14:59 22:59 Intake Total 380 360 Balance 380 360 Med Orders - Current: Current Medications Diphenhydramine HCl (Benadryl) 25 mg IVPUSH Q6H PRN PRN Reason: Itching Diphenhydramine HCl (Benadryl) 25 mg PO Q6H PRN PRN Reason: Itching Sodium Chloride (Normal Saline) 500 mls @ 30 mls/hr IV ASDIRECTED [facility] Last Admin: 02/27/20 16:16 Dose: 30 mls/hr Documented by: Metoclopramide HCl (Reglan) 5 mg IV TID [facility] Last Admin: 02/27/20 13:30 Dose: 5 mg Documented by: Morphine Sulfate (Morphine First Cook 30 Mg In 30 Ml) 30 mg IV ASDIRECTED [facility]; Protocol Last Admin: 02/26/20 06:21 Dose: 30 mg Documented by: Naloxone HCl (Narcan) 0.04 mg IVPUSH Q3M PRN PRN Reason: Respiratory Depression Ondansetron HCl (Zofran) 4 mg IVPUSH Q4H PRN PRN Reason: Nausea/Vomiting Last Admin: 02/27/20 08:32 Dose: 4 mg Documented by: Pantoprazole Sodium (Protonix Iv) 40 mg IVPUSH Q24H [facility] Last Admin: 02/27/20 08:45 Dose: 40 mg Documented by: Senna/Docusate Sodium (Senna Plus) 1 tab PO DAILY PRN PRN Reason: Constipation Last Admin: 02/27/20 08:45 Dose: 1 tab Documented by: Sodium Chloride (Saline Flush) 5 ml FLUSH SEECOMMENT PRN PRN Reason: Other Discontinued Medications Sodium Chloride (Normal Saline) 250 mls @ 30 mls/hr IV ASDIRECTED [facility] Last Admin: 02/03/20 11:37 Dose: 30 mls/hr Documented by: Dextrose/Sodium Chloride (Dextrose 5%-Normal Saline) 500 mls @ 125 mls/hr IV ASDIRECTED [facility] Last Admin: 02/23/20 09:30 Dose: 125 mls/hr Documented by: Influenza Virus Vaccine (Pharmacy To Dose - Influenza Vaccine) 1 each IM ONETIME ONE Stop: 02/15/20 19:49 Influenza Virus Vaccine (Afluria Quad 2020- (3yr Up)) 60 mcg IM .ONCE ONE Stop: 01/30/20 20:01 Morphine Sulfate (Morphine First Cook 30 Mg In 30 Ml) 0 mg IV ASDIRECTED [facility]; Protocol Ondansetron HCl (Zofran) 4 mg IVPUSH Q6H PRN PRN Reason: Nausea/Vomiting Last Admin: 02/21/20 07:45 Dose: 4 mg Documented by: Tuberculin PPD (Aplisol) 5 unit IDERM ONETIME ONE Stop: 01/30/20 18:40 Last Admin: 01/30/20 19:34 Dose: 5 unit Documented by: - Exam General: Alert, Oriented, Cooperative HEENT: Pupils Equal, Pupils Reactive, EOMI Neck: Supple Lungs: Clear to Auscultation, Normal Respiratory Effort Cardiovascular: Regular Rate, Regular Rhythm GI/Abdominal Exam: Abnormal Bowel Sounds (decreased BS) Back Exam: Normal Inspection Skin: Warm, Dry, Intact Psy/Mental Status: Alert, Depressed Sepsis Event Note - Evaluation Sepsis Screening Result: No Definite Risk - Focused Exam Vital Signs: Vital Signs Temp Pulse Resp BP Pulse Ox 02/27/20 10:00 36.4 C 58 L 16 147/62 H 100 - Problem List & Annotations (1) Comfort measures only status SNOMED Code(s): 79160490356457 Code(s): Z51.5 - ENCOUNTER FOR PALLIATIVE CARE Status: Acute Priority: High Current Visit: Yes (2) Pain managed using patient-controlled analgesia ([employer]) SNOMED Code(s): 878480040 Code(s): R52 - PAIN, UNSPECIFIED Status: Acute Priority: High Current Visit: Yes (3) Metastasis from pancreatic cancer SNOMED Code(s): 234077689 Code(s): C79.9 - SECONDARY MALIGNANT NEOPLASM OF UNSPECIFIED SITE; C25.9 - MALIGNANT NEOPLASM OF PANCREAS, UNSPECIFIED Status: Acute Priority: High Current Visit: Yes - Problem List Review Problem List Initiated/Reviewed/Updated: Yes - My Orders Last 24 Hours: My Active Orders 02/27/20 08:45 Pantoprazole [ProTONIX IV] 40 mg IVPUSH Q24H - Plan Plan:: Patient to stay for comforts care and pain management. He will be started on [employer] pump and monitoring regularly. He has some abdominal discomfort at this time. 02/13/20 Patient stable, on increased basal morphine [employer] this past weekend, addition of zofran this last weekend. No further changes at this time and no concerns. Continue comfort cares. 02/20/20 Patient stable. Patient continually on [employer]PER[employer] which has helped his pain. He has been using more zofran due to increased nausea. Patient continues on comfort cares with life expectancy less than 2 months. 02/27/20 Patient has increased weakness. Decrease appetite. Increased nausea. Patient continues to deteriorate with a life expectancy of 2 months. He continues to require pain management for the metastatic cancer pain.
[2020-02-27] MEDS: Morphine PF 30 MG/30 ML PCA Vial IV SCH (18:58)
[2020-02-28] MEDS: Metoclopramide 10 MG/2 ML SDV IV SCH ×3 (07:59→20:09)
[2020-02-28] MEDS ORDERED: Tuberculin, PPD 5 Units/0.1 ML 1 ML MDV IDERM ONE (08:00)
[2020-02-28] MEDS: Pantoprazole 40 MG Vial IVPUSH SCH (09:00)
[2020-02-28] MEDS: Morphine PF 150 MG/30 ML PCA Syringe IV PRN (15:00)
[2020-02-28] MEDS: Ondansetron 4 MG/2 ML SDV IVPUSH PRN (16:18)
[2020-02-29] MEDS: Sodium Chloride 0.9% 500 ML IV SCH ×2 (01:16→17:39)
[2020-02-29] MEDS: Metoclopramide 10 MG/2 ML SDV IV SCH ×3 (08:10→19:54)
[2020-02-29] MEDS: Pantoprazole 40 MG Vial IVPUSH SCH (08:12)
[2020-02-29] MEDS: Ondansetron 4 MG/2 ML SDV IVPUSH PRN (16:53)
[2020-03-01] MEDS: Ondansetron 4 MG/2 ML SDV IVPUSH PRN ×2 (02:34→12:02)
[2020-03-01] MEDS: Metoclopramide 10 MG/2 ML SDV IV SCH ×2 (08:11→14:16)
[2020-03-01] MEDS: Pantoprazole 40 MG Vial IVPUSH SCH (08:12)
[2020-03-02] MEDS: Ondansetron 4 MG/2 ML SDV IVPUSH PRN ×3 (07:40→19:22)
[2020-03-02] MEDS: Metoclopramide 10 MG/2 ML SDV IV SCH ×4 (07:40→19:22)
[2020-03-02] MEDS: Pantoprazole 40 MG Vial IVPUSH SCH (09:00)
[2020-03-02] MEDS: Sodium Chloride 0.9% 500 ML IV SCH (13:28)
[2020-03-02] MEDS ORDERED: Docusate Sodium 250 MG Cap ONE (15:34)
[2020-03-02] MEDS: Morphine PF 150 MG/30 ML PCA Syringe IV PRN (19:13)
[2020-03-03] MEDS: Sodium Chloride 0.9% 500 ML IV SCH (05:15)
[2020-03-03] MEDS ORDERED: Sodium Chloride 0.9% 500 ML IV SCH (05:30)
[2020-03-03] MEDS: Metoclopramide 10 MG/2 ML SDV IV SCH ×3 (07:20→21:27)
[2020-03-03] MEDS: Sodium Chloride 0.9% 10 ML Syringe FLUSH PRN (07:26)
[2020-03-03] MEDS: Pantoprazole 40 MG Vial IVPUSH SCH (09:31)
[2020-03-03] MEDS: Morphine PF 150 MG/30 ML PCA Syringe IV PRN (19:28)
[2020-03-04] MEDS: Sodium Chloride 0.9% 500 ML IV SCH ×2 (02:34→18:22)
[2020-03-04] MEDS ORDERED: Polyethylene Glycol 3350 Powder 17 GM Packet PO PRN (08:00)
[2020-03-04] MEDS: Metoclopramide 10 MG/2 ML SDV IV SCH ×3 (08:06→19:25)
[2020-03-04] MEDS: Pantoprazole 40 MG Vial IVPUSH SCH (09:09)
[2020-03-04] MEDS: Morphine PF 150 MG/30 ML PCA Syringe IV PRN (19:24)
[2020-03-04] MEDS ORDERED: Bisacodyl 10 MG Supp RECTAL PRN (22:44)
[2020-03-05] MEDS: Metoclopramide 10 MG/2 ML SDV IV SCH ×3 (07:53→20:20)
[2020-03-05] MEDS: Sodium Chloride 0.9% 10 ML Syringe FLUSH PRN (07:54)
--- NOTE | 2020-03-05 08:32 | PCM.PN ---
- General Info Date of Service: 03/05/20 Subjective Update: Patient has increased nausea. He has not eaten for the past 4-5 days. He also has not had a BM until the recent use of stool laxatives. He is weaker per nursing and self. He has felt worse the past week. He has used his VENDOR MANAGER bump more often. - Review of Systems General: Reports: Weakness, Fatigue, Malaise HEENT: Reports: No Symptoms Pulmonary: Reports: No Symptoms Cardiovascular: Reports: No Symptoms Gastrointestinal: Reports: Decreased Appetite, Nausea Genitourinary: Reports: No Symptoms Musculoskeletal: Reports: No Symptoms Skin: Reports: No Symptoms Neurological: Reports: Difficulty Walking, Weakness - Patient Data Vitals - Most Recent: Last Vital Signs Temp 36.1 C 03/04/20 10:00 Pulse 85 03/04/20 10:00 Resp 16 03/04/20 10:00 BP 125/67 03/04/20 10:00 Pulse Ox 98 03/04/20 10:00 Weight - Most Recent: 73.936 kg I&O - Last 24 Hours: Intake & Output 03/04/20 03/05/20 03/05/20 22:59 06:59 14:59 Intake Total 360 360 Balance 360 360 Med Orders - Current: Current Medications Bisacodyl (Dulcolax) 10 mg RECTAL DAILY PRN PRN Reason: Constipation Diphenhydramine HCl (Benadryl) 25 mg IVPUSH Q6H PRN PRN Reason: Itching Diphenhydramine HCl (Benadryl) 25 mg PO Q6H PRN PRN Reason: Itching Sodium Chloride (Normal Saline) 500 mls @ 30 mls/hr IV ASDIRECTED [facility] Last Admin: 03/04/20 18:22 Dose: 30 mls/hr Documented by: Lorazepam (Ativan) 0.5 mg IVPUSH Q8H PRN PRN Reason: Anxiety Metoclopramide HCl (Reglan) 5 mg IV TID [facility] Last Admin: 03/05/20 07:53 Dose: 5 mg Documented by: Morphine Sulfate (Morphine Label Rewinder 30 Mg In 30 Ml) 30 mg IV ASDIRECTED [facility]; Protocol Last Admin: 02/27/20 18:58 Dose: 30 mg Documented by: Morphine Sulfate (Morphine Label Rewinder 150 Mg In 30 Ml) 150 mg IV ASDIRECTED PRN; Protocol PRN Reason: Pain (severe 7-10) Last Admin: 03/04/20 19:24 Dose: 150 mg Documented by: Naloxone HCl (Narcan) 0.04 mg IVPUSH Q3M PRN PRN Reason: Respiratory Depression Ondansetron HCl (Zofran) 4 mg IVPUSH Q4H PRN PRN Reason: Nausea/Vomiting Last Admin: 03/02/20 19:22 Dose: 4 mg Documented by: Ondansetron HCl (Zofran) 4 mg IVPUSH Q4H [facility] Pantoprazole Sodium (Protonix Iv) 40 mg IVPUSH Q24H [facility] Last Admin: 03/04/20 09:09 Dose: 40 mg Documented by: Polyethylene Glycol (Miralax) 17 gm PO BEDTIME PRN PRN Reason: Constipation Last Admin: 03/04/20 17:03 Dose: 17 gm Documented by: Senna/Docusate Sodium (Senna Plus) 1 tab PO BID [facility] Sodium Chloride (Saline Flush) 5 ml FLUSH SEECOMMENT PRN PRN Reason: Other Last Admin: 03/05/20 07:54 Dose: 5 ml Documented by: Discontinued Medications Docusate Sodium (Dok) Confirm Administered Dose 250 mg .ROUTE .STK-MED ONE Stop: 03/02/20 15:35 Last Admin: 03/02/20 15:52 Dose: Not Given Documented by: Sodium Chloride (Normal Saline) 250 mls @ 30 mls/hr IV ASDIRECTED [facility] Last Admin: 02/03/20 11:37 Dose: 30 mls/hr Documented by: Sodium Chloride (Normal Saline) 500 mls @ 30 mls/hr IV ASDIRECTED [facility] Last Admin: 03/02/20 13:28 Dose: 30 mls/hr Documented by: Dextrose/Sodium Chloride (Dextrose 5%-Normal Saline) 500 mls @ 125 mls/hr IV ASDIRECTED [facility] Last Admin: 02/23/20 09:30 Dose: 125 mls/hr Documented by: Sodium Chloride (Normal Saline) 500 mls @ 30 mls/hr IV ASDIRECTED [facility] Last Admin: 03/03/20 05:18 Dose: 30 mls/hr Documented by: Influenza Virus Vaccine (Pharmacy To Dose - Influenza Vaccine) 1 each IM ONETIME ONE Stop: 02/15/20 19:49 Influenza Virus Vaccine (Afluria Quad 2020-21 (3yr Up)) 60 mcg IM .ONCE ONE Stop: 01/30/20 20:01 Morphine Sulfate (Morphine Label Rewinder 30 Mg In 30 Ml) 0 mg IV ASDIRECTED [facility]; Protocol Ondansetron HCl (Zofran) 4 mg IVPUSH Q6H PRN PRN Reason: Nausea/Vomiting Last Admin: 02/21/20 07:45 Dose: 4 mg Documented by: Senna/Docusate Sodium (Senna Plus) 1 tab PO DAILY PRN PRN Reason: Constipation Last Admin: 03/03/20 16:21 Dose: 1 tab Documented by: Senna/Docusate Sodium (Senna Plus) 1 tab PO BID@0800,1700 [facility] Last Admin: 03/04/20 08:06 Dose: 1 tab Documented by: Tuberculin PPD (Aplisol) 5 unit IDERM ONETIME ONE Stop: 01/30/20 18:40 Last Admin: 01/30/20 19:34 Dose: 5 unit Documented by: Tuberculin PPD (Aplisol) 5 unit IDERM ONETIME ONE Stop: 02/28/20 08:01 Last Admin: 02/28/20 15:53 Dose: Not Given Documented by: - Exam General: Alert, Oriented, Cooperative HEENT: Pupils Equal, Pupils Reactive, EOMI Neck: Supple Lungs: Clear to Auscultation, Normal Respiratory Effort Cardiovascular: Regular Rate, Regular Rhythm Back Exam: Normal Inspection Extremities: Normal Inspection Neurological: No New Focal Deficit Psy/Mental Status: Depressed Sepsis Event Note - Evaluation Sepsis Screening Result: No Definite Risk - Problem List & Annotations (1) Comfort measures only status SNOMED Code(s): 55080214589947 Code(s): Z51.5 - ENCOUNTER FOR PALLIATIVE CARE Status: Acute Priority: High Current Visit: Yes (2) Pain managed using patient-controlled analgesia (VENDOR MANAGER) SNOMED Code(s): 988971775 Code(s): R52 - PAIN, UNSPECIFIED Status: Acute Priority: High Current Visit: Yes (3) Metastasis from pancreatic cancer SNOMED Code(s): 233153825 Code(s): C79.9 - SECONDARY MALIGNANT NEOPLASM OF UNSPECIFIED SITE; C25.9 - MALIGNANT NEOPLASM OF PANCREAS, UNSPECIFIED Status: Acute Priority: High Current Visit: Yes - Problem List Review Problem List Initiated/Reviewed/Updated: Yes - My Orders Last 24 Hours: My Active Orders 03/04/20 22:44 bisacodyL [Dulcolax] 10 mg RECTAL DAILY PRN 03/05/20 08:13 LORazepam [Ativan] 0.5 mg IVPUSH Q8H PRN 03/05/20 08:15 Docusate Sodium/Sennosides [Senna Plus] 1 tab PO BID Ondansetron [Zofran] 4 mg IVPUSH Q4H - Plan Plan:: Patient to stay for comforts care and pain management. He will be started on VENDOR MANAGER pump and monitoring regularly. He has some abdominal discomfort at this time. 02/13/20 Patient stable, on increased basal morphine VENDOR MANAGER this past weekend, addition of zofran this last weekend. No further changes at this time and no concerns. Continue comfort cares. 02/20/20 Patient stable. Patient continually on VENDOR MANAGER which has helped his pain. He has been using more zofran due to increased nausea. Patient continues on comfort cares with life expectancy less than 2 months. 02/27/20 Patient has increased weakness. Decrease appetite. Increased nausea. Patient continues to deteriorate with a life expectancy of 2 months. He continues to require pain management for the metastatic cancer pain. 03/05/20 Patient is getting weaker. Nausea is persistent and worse - will try scheduled zofran and if no improvement will try compazine. Discussed continued stool laxatives and monitor symptoms. We will continue current baseline VENDOR MANAGER and patient to continue bumps. Patient's life expectancy less than 2 months.
[2020-03-05] MEDS: Pantoprazole 40 MG Vial IVPUSH SCH (08:46)
[2020-03-05] MEDS: Ondansetron 4 MG/2 ML SDV IVPUSH SCH ×4 (08:46→20:20)
[2020-03-05] MEDS: Sodium Chloride 0.9% 500 ML IV SCH (09:30)
[2020-03-06] MEDS: Sodium Chloride 0.9% 500 ML IV SCH ×2 (02:18→20:09)
[2020-03-06] MEDS: Ondansetron 4 MG/2 ML SDV IVPUSH SCH ×4 (02:18→17:26)
[2020-03-06] MEDS: Pantoprazole 40 MG Vial IVPUSH SCH (08:03)
[2020-03-06] MEDS: Metoclopramide 10 MG/2 ML SDV IV SCH ×3 (08:03→20:08)
[2020-03-07] MEDS: Ondansetron 4 MG/2 ML SDV IVPUSH SCH ×6 (08:10→19:50)
[2020-03-07] MEDS: Metoclopramide 10 MG/2 ML SDV IV SCH ×3 (08:16→19:30)
[2020-03-07] MEDS: Pantoprazole 40 MG Vial IVPUSH SCH (08:28)
[2020-03-07] MEDS: Sodium Chloride 0.9% 500 ML IV SCH (12:54)
[2020-03-07] MEDS: Morphine PF 150 MG/30 ML PCA Syringe IV PRN (13:13)
[2020-03-08] MEDS: Ondansetron 4 MG/2 ML SDV IVPUSH SCH ×7 (05:03→23:34)
[2020-03-08] MEDS: Metoclopramide 10 MG/2 ML SDV IV SCH ×4 (06:37→20:11)
[2020-03-08] MEDS: Pantoprazole 40 MG Vial IVPUSH SCH (09:54)
[2020-03-08] MEDS: LORazepam 2 MG/ML SDV IVPUSH PRN (20:12)
[2020-03-08] MEDS: Morphine PF 150 MG/30 ML PCA Syringe IV PRN (21:32)
[2020-03-09] MEDS: Ondansetron 4 MG/2 ML SDV IVPUSH SCH ×5 (04:07→19:36)
[2020-03-09] MEDS: Sodium Chloride 0.9% 500 ML IV SCH ×2 (04:14→16:54)
[2020-03-09] MEDS: Metoclopramide 10 MG/2 ML SDV IV SCH ×3 (08:25→19:35)
[2020-03-09] MEDS: Pantoprazole 40 MG Vial IVPUSH SCH (08:30)
[2020-03-09] MEDS: LORazepam 2 MG/ML SDV IVPUSH PRN (19:35)
[2020-03-09] MEDS: Morphine PF 150 MG/30 ML PCA Syringe IV PRN (21:24)
[2020-03-10] MEDS: Ondansetron 4 MG/2 ML SDV IVPUSH SCH ×6 (00:08→19:38)
[2020-03-10] MEDS: Metoclopramide 10 MG/2 ML SDV IV SCH ×3 (08:08→19:38)
[2020-03-10] MEDS: Pantoprazole 40 MG Vial IVPUSH SCH (08:12)
[2020-03-10] MEDS ORDERED: Sodium Chloride 0.9% 1,000 ML IV SCH (19:45)
[2020-03-10] MEDS: Morphine PF 150 MG/30 ML PCA Syringe IV PRN (21:34)
[2020-03-11] MEDS: Ondansetron 4 MG/2 ML SDV IVPUSH SCH ×6 (00:05→22:45)
[2020-03-11] MEDS: Metoclopramide 10 MG/2 ML SDV IV SCH ×3 (09:22→21:12)
[2020-03-11] MEDS: Sodium Chloride 0.9% 500 ML IV SCH (09:36)
[2020-03-11] MEDS: Pantoprazole 40 MG Vial IVPUSH SCH (10:28)
[2020-03-11] MEDS: Morphine PF 150 MG/30 ML PCA Syringe IV PRN (21:09)
[2020-03-12] MEDS: Sodium Chloride 0.9% 500 ML IV SCH ×2 (00:38→17:20)
[2020-03-12] MEDS: Ondansetron 4 MG/2 ML SDV IVPUSH SCH ×6 (00:41→19:32)
[2020-03-12] MEDS: Metoclopramide 10 MG/2 ML SDV IV SCH ×3 (07:40→19:32)
[2020-03-12] MEDS: Pantoprazole 40 MG Vial IVPUSH SCH (09:49)
--- NOTE | 2020-03-12 10:37 | PCM.PN ---
- General Info Date of Service: 03/12/20 Subjective Update: Patient has gotten much weaker and appears more cachectic this week. He is responsive and denies any issues but has recently had an increase of his INFORMATION ENGINEER pump which appears to have helped. He is not eating much and appears very frail. - Review of Systems General: Reports: Weakness, Fatigue HEENT: Reports: No Symptoms Pulmonary: Reports: No Symptoms Cardiovascular: Reports: No Symptoms Gastrointestinal: Reports: Decreased Appetite Genitourinary: Reports: No Symptoms Musculoskeletal: Reports: No Symptoms - Patient Data Vitals - Most Recent: Last Vital Signs Temp 36.2 C 03/11/20 10:00 Pulse 96 03/11/20 10:00 Resp 14 03/11/20 10:00 BP 133/64 03/11/20 10:00 Pulse Ox 97 03/11/20 10:00 Weight - Most Recent: 73.936 kg I&O - Last 24 Hours: Intake & Output 03/11/20 03/12/20 03/12/20 22:59 06:59 14:59 Intake Total 465 360 Balance 465 360 Med Orders - Current: Current Medications Bisacodyl (Dulcolax) 10 mg RECTAL DAILY PRN PRN Reason: Constipation Diphenhydramine HCl (Benadryl) 25 mg IVPUSH Q6H PRN PRN Reason: Itching and restless Last Admin: 03/10/20 19:38 Dose: 25 mg Documented by: Diphenhydramine HCl (Benadryl) 25 mg PO Q6H PRN PRN Reason: Itching Sodium Chloride (Normal Saline) 500 mls @ 30 mls/hr IV ASDIRECTED [facility] Last Admin: 03/12/20 00:38 Dose: 30 mls/hr Documented by: Sodium Chloride (Normal Saline) 1,000 mls @ 75 mls/hr IV ASDIRECTED [facility] Lorazepam (Ativan) 0.5 mg IVPUSH Q8H PRN PRN Reason: Anxiety Last Admin: 03/08/20 20:12 Dose: 0.5 mg Documented by: Lorazepam (Ativan) 1 mg IVPUSH Q6H PRN PRN Reason: Nausea/Vomiting Last Admin: 03/09/20 19:35 Dose: 1 mg Documented by: Metoclopramide HCl (Reglan) 5 mg IV TID [facility] Last Admin: 03/12/20 07:40 Dose: 5 mg Documented by: Morphine Sulfate (Morphine Supervisor Tellers 30 Mg In 30 Ml) 30 mg IV ASDIRECTED [facility]; Protocol Last Admin: 02/27/20 18:58 Dose: 30 mg Documented by: Morphine Sulfate (Morphine Supervisor Tellers 150 Mg In 30 Ml) 150 mg IV ASDIRECTED PRN; Protocol PRN Reason: Pain (severe 7-10) Last Admin: 03/11/20 21:09 Dose: 150 mg Documented by: Ondansetron HCl (Zofran) 4 mg IVPUSH Q4H PRN PRN Reason: Nausea/Vomiting Last Admin: 03/02/20 19:22 Dose: 4 mg Documented by: Ondansetron HCl (Zofran) 4 mg IVPUSH Q4H [facility] Last Admin: 03/12/20 07:50 Dose: 4 mg Documented by: Pantoprazole Sodium (Protonix Iv) 40 mg IVPUSH Q24H [facility] Last Admin: 03/12/20 09:49 Dose: 40 mg Documented by: Polyethylene Glycol (Miralax) 17 gm PO BEDTIME PRN PRN Reason: Constipation Last Admin: 03/04/20 17:03 Dose: 17 gm Documented by: Senna/Docusate Sodium (Senna Plus) 1 tab PO BID [facility] Last Admin: 03/12/20 07:52 Dose: Not Given Documented by: Sodium Chloride (Saline Flush) 5 ml FLUSH SEECOMMENT PRN PRN Reason: Other Last Admin: 03/05/20 07:54 Dose: 5 ml Documented by: Discontinued Medications Docusate Sodium (Dok) Confirm Administered Dose 250 mg .ROUTE .STK-MED ONE Stop: 03/02/20 15:35 Last Admin: 03/02/20 15:52 Dose: Not Given Documented by: Sodium Chloride (Normal Saline) 250 mls @ 30 mls/hr IV ASDIRECTED [facility] Last Admin: 02/03/20 11:37 Dose: 30 mls/hr Documented by: Sodium Chloride (Normal Saline) 500 mls @ 30 mls/hr IV ASDIRECTED [facility] Last Admin: 03/02/20 13:28 Dose: 30 mls/hr Documented by: Dextrose/Sodium Chloride (Dextrose 5%-Normal Saline) 500 mls @ 125 mls/hr IV DIRECTED [facility] Last Admin: 02/23/20 09:30 Dose: 125 mls/hr Documented by: Sodium Chloride (Normal Saline) 500 mls @ 30 mls/hr IV ASDIRECTED [facility] Last Admin: 03/03/20 05:18 Dose: 30 mls/hr Documented by: Influenza Virus Vaccine (Pharmacy To Dose - Influenza Vaccine) 1 each IM ONETIME ONE Stop: 02/15/20 19:49 Influenza Virus Vaccine (Afluria Quad 2019- (3yr Up)) 60 mcg IM .ONCE ONE Stop: 01/30/20 20:01 Morphine Sulfate (Morphine Supervisor Tellers 30 Mg In 30 Ml) 0 mg IV ASDIRECTED [facility]; Protocol Ondansetron HCl (Zofran) 4 mg IVPUSH Q6H PRN PRN Reason: Nausea/Vomiting Last Admin: 02/21/20 07:45 Dose: 4 mg Documented by: Senna/Docusate Sodium (Senna Plus) 1 tab PO DAILY PRN PRN Reason: Constipation Last Admin: 03/03/20 16:21 Dose: 1 tab Documented by: Senna/Docusate Sodium (Senna Plus) 1 tab PO BID@0800,1700 [facility] Last Admin: 03/04/20 08:06 Dose: 1 tab Documented by: Tuberculin PPD (Aplisol) 5 unit IDERM ONETIME ONE Stop: 01/30/20 18:40 Last Admin: 01/30/20 19:34 Dose: 5 unit Documented by: Tuberculin PPD (Aplisol) 5 unit IDERM ONETIME ONE Stop: 02/28/20 08:01 Last Admin: 02/28/20 15:53 Dose: Not Given Documented by: - Exam General: Alert, Oriented, Cooperative HEENT: Pupils Equal, Pupils Reactive, EOMI Neck: Supple Lungs: Clear to Auscultation, Normal Respiratory Effort Cardiovascular: Regular Rate, Regular Rhythm Extremities: Normal Inspection Skin: Dry, Intact, Cool Neurological: No New Focal Deficit Psy/Mental Status: Alert, Depressed Sepsis Event Note - Evaluation Sepsis Screening Result: No Definite Risk - Problem List & Annotations (1) Comfort measures only status SNOMED Code(s): 85432352983626 Code(s): Z51.5 - ENCOUNTER FOR PALLIATIVE CARE Status: Acute Priority: High Current Visit: Yes (2) Pain managed using patient-controlled analgesia (INFORMATION ENGINEER) SNOMED Code(s): 866713380 Code(s): R52 - PAIN, UNSPECIFIED Status: Acute Priority: High Current Visit: Yes (3) Metastasis from pancreatic cancer SNOMED Code(s): 186203518 Code(s): C79.9 - SECONDARY MALIGNANT NEOPLASM OF UNSPECIFIED SITE; C25.9 - MALIGNANT NEOPLASM OF PANCREAS, UNSPECIFIED Status: Acute Priority: High Current Visit: Yes - Problem List Review Problem List Initiated/Reviewed/Updated: Yes - Plan Plan:: Patient to stay for comforts care and pain management. He will be started on INFORMATION ENGINEER pump and monitoring regularly. He has some abdominal discomfort at this time. 02/13/20 Patient stable, on increased basal morphine INFORMATION ENGINEER this past weekend, addition of zofran this last weekend. No further changes at this time and no concerns. Co ntinue comfort cares. 02/20/20 Patient stable. Patient continually on INFORMATION ENGINEER which has helped his pain. He has been using more zofran due to increased nausea. Patient continues on comfort cares with life expectancy less than 2 months. 02/27/20 Patient has increased weakness. Decrease appetite. Increased nausea. Patient continues to deteriorate with a life expectancy of 2 months. He continues to require pain management for the metastatic cancer pain. 03/05/20 Patient is getting weaker. Nausea is persistent and worse - will try scheduled zofran and if no improvement will try compazine. Discussed continued stool laxatives and monitor symptoms. We will continue current baseline INFORMATION ENGINEER and patient to continue bumps. Patient's life expectancy less than 2 months. 03/12/20 Patient continues to deteriorate. He does not discuss any nausea today but has it consistently. INFORMATION ENGINEER to be monitored as his baseline is now a 2mg/hr. He has worsened significantly since last week. Patient's life expectancy less than 1 month but possible less if he continues to deteriorate as quickly as from last week.
[2020-03-12] MEDS: Morphine PF 150 MG/30 ML PCA Syringe IV PRN (20:27)
[2020-03-13] MEDS: Ondansetron 4 MG/2 ML SDV IVPUSH SCH ×6 (00:04→20:21)
[2020-03-13] MEDS: LORazepam 2 MG/ML SDV IVPUSH PRN (05:58)
[2020-03-13] MEDS: Metoclopramide 10 MG/2 ML SDV IV SCH ×3 (08:15→20:18)
[2020-03-13] MEDS: Pantoprazole 40 MG Vial IVPUSH SCH (09:00)
--- NOTE | 2020-03-13 10:48 | PCM.PN ---
- General Info Date of Service: 03/13/20 Subjective Update: Patient has been confused and has decreased responsiveness. - Review of Systems General: Reports: Weakness, Fatigue Pulmonary: Reports: No Symptoms Cardiovascular: Reports: No Symptoms Neurological: Reports: Confusion, Weakness Psychiatric: Reports: Confusion - Patient Data Vitals - Most Recent: Last Vital Signs Temp 36.2 C 03/11/20 10:00 Pulse 96 03/11/20 10:00 Resp 14 03/11/20 10:00 BP 133/64 03/11/20 10:00 Pulse Ox 97 03/11/20 10:00 Weight - Most Recent: 73.936 kg I&O - Last 24 Hours: Intake & Output 03/12/20 03/13/20 03/13/20 22:59 06:59 14:59 Intake Total 360 360 Balance 360 360 Med Orders - Current: Current Medications Bisacodyl (Dulcolax) 10 mg RECTAL DAILY PRN PRN Reason: Constipation Diphenhydramine HCl (Benadryl) 25 mg IVPUSH Q6H PRN PRN Reason: Itching and restless Last Admin: 03/10/20 19:38 Dose: 25 mg Documented by: Diphenhydramine HCl (Benadryl) 25 mg PO Q6H PRN PRN Reason: Itching Sodium Chloride (Normal Saline) 500 mls @ 30 mls/hr IV ASDIRECTED [facility] Last Admin: 03/12/20 17:20 Dose: 30 mls/hr Documented by: Sodium Chloride (Normal Saline) 1,000 mls @ 75 mls/hr IV ASDIRECTED [facility] Lorazepam (Ativan) 0.5 mg IVPUSH Q8H PRN PRN Reason: Anxiety Last Admin: 03/08/20 20:12 Dose: 0.5 mg Documented by: Lorazepam (Ativan) 1 mg IVPUSH Q6H PRN PRN Reason: Nausea/Vomiting Last Admin: 03/13/20 05:58 Dose: 1 mg Documented by: Metoclopramide HCl (Reglan) 5 mg IV TID [facility] Last Admin: 03/12/20 19:32 Dose: 5 mg Documented by: Morphine Sulfate (Morphine Search Coordinator 30 Mg In 30 Ml) 30 mg IV ASDIRECTED [facility]; Protocol Last Admin: 02/27/20 18:58 Dose: 30 mg Documented by: Morphine Sulfate (Morphine Search Coordinator 150 Mg In 30 Ml) 150 mg IV ASDIRECTED PRN; Protocol PRN Reason: Pain (severe 7-10) Last Admin: 03/12/20 20:27 Dose: 150 mg Documented by: Ondansetron HCl (Zofran) 4 mg IVPUSH Q4H PRN PRN Reason: Nausea/Vomiting Last Admin: 03/02/20 19:22 Dose: 4 mg Documented by: Ondansetron HCl (Zofran) 4 mg IVPUSH Q4H [facility] Last Admin: 03/13/20 04:54 Dose: 4 mg Documented by: Pantoprazole Sodium (Protonix Iv) 40 mg IVPUSH Q24H [facility] Last Admin: 03/12/20 09:49 Dose: 40 mg Documented by: Polyethylene Glycol (Miralax) 17 gm PO BEDTIME PRN PRN Reason: Constipation Last Admin: 03/04/20 17:03 Dose: 17 gm Documented by: Senna/Docusate Sodium (Senna Plus) 1 tab PO BID [facility] Last Admin: 03/12/20 19:23 Dose: Not Given Documented by: Sodium Chloride (Saline Flush) 5 ml FLUSH SEECOMMENT PRN PRN Reason: Other Last Admin: 03/05/20 07:54 Dose: 5 ml Documented by: Discontinued Medications Docusate Sodium (Dok) Confirm Administered Dose 250 mg .ROUTE .STK-MED ONE Stop: 03/02/20 15:35 Last Admin: 03/02/20 15:52 Dose: Not Given Documented by: Sodium Chloride (Normal Saline) 250 mls @ 30 mls/hr IV ASDIRECTED [facility] Last Admin: 02/03/20 11:37 Dose: 30 mls/hr Documented by: Sodium Chloride (Normal Saline) 500 mls @ 30 mls/hr IV ASDIRECTED [facility] Last Admin: 03/02/20 13:28 Dose: 30 mls/hr Documented by: Dextrose/Sodium Chloride (Dextrose 5%-Normal Saline) 500 mls @ 125 mls/hr IV ASDIRECTED [facility] Last Admin: 02/23/20 09:30 Dose: 125 mls/hr Documented by: Sodium Chloride (Normal Saline) 500 mls @ 30 mls/hr IV ASDIRECTED [facility] Last Admin: 03/03/20 05:18 Dose: 30 mls/hr Documented by: Influenza Virus Vaccine (Pharmacy To Dose - Influenza Vaccine) 1 each IM ONETIME ONE Stop: 02/15/20 19:49 Influenza Virus Vaccine (Afluria Quad (3yr Up)) 60 mcg IM .ONCE ONE Stop: 01/30/20 20:01 Morphine Sulfate (Morphine Search Coordinator 30 Mg In 30 Ml) 0 mg IV ASDIRECTED [facility]; Protocol Ondansetron HCl (Zofran) 4 mg IVPUSH Q6H PRN PRN Reason: Nausea/Vomiting Last Admin: 02/21/20 07:45 Dose: 4 mg Documented by: Senna/Docusate Sodium (Senna Plus) 1 tab PO DAILY PRN PRN Reason: Constipation Last Admin: 03/03/20 16:21 Dose: 1 tab Documented by: Senna/Docusate Sodium (Senna Plus) 1 tab PO BID@0800,1700 [facility] Last Admin: 03/04/20 08:06 Dose: 1 tab Documented by: Tuberculin PPD (Aplisol) 5 unit IDERM ONETIME ONE Stop: 01/30/20 18:40 Last Admin: 01/30/20 19:34 Dose: 5 unit Documented by: Tuberculin PPD (Aplisol) 5 unit IDERM ONETIME ONE Stop: 02/28/20 08:01 Last Admin: 02/28/20 15:53 Dose: Not Given Documented by: - Exam General: Lethargic HEENT: Pupils Equal, Pupils Reactive, EOMI, Scleral Icterus Neck: Supple Lungs: Rales, Rhonchi Cardiovascular: Regular Rate, Regular Rhythm GI/Abdominal Exam: Abnormal Bowel Sounds (decreased) Extremities: Other (cachetic) Skin: Dry, Intact, Cool, Other (jaundiced) Psy/Mental Status: Depressed Sepsis Event Note - Evaluation Sepsis Screening Result: No Definite Risk - Problem List & Annotations (1) Comfort measures only status SNOMED Code(s): 05966994727513 Code(s): Z51.5 - ENCOUNTER FOR PALLIATIVE CARE Status: Acute Priority: High Current Visit: Yes (2) Pain managed using patient-controlled analgesia (PROTEIN CHEMIST) SNOMED Code(s): 073673117 Code(s): R52 - PAIN, UNSPECIFIED Status: Acute Priority: High Current Visit: Yes (3) Metastasis from pancreatic cancer SNOMED Code(s): 184178788 Code(s): C79.9 - SECONDARY MALIGNANT NEOPLASM OF UNSPECIFIED SITE; C25.9 - MALIGNANT NEOPLASM OF PANCREAS, UNSPECIFIED Status: Acute Priority: High Current Visit: Yes - Problem List Review Problem List Initiated/Reviewed/Updated: Yes - Plan Plan:: Patient to stay for comforts care and pain management. He will be started on PROTEIN CHEMIST pump and monitoring regularly. He has some abdominal discomfort at this time. 02/13/20 Patient stable, on increased basal morphine PROTEIN CHEMIST this past weekend, addition of zofran this last weekend. No further changes at this time and no concerns. Continue comfort cares. 02/20/20 Patient stable. Patient continually on PROTEIN CHEMIST which has helped his pain. He has been using more zofran due to increased nausea. Patient continues on comfort cares with life expectancy less than 2 months. 02/27/20 Patient has increased weakness. Decrease appetite. Increased nausea. Patient continues to deteriorate with a life expectancy of 2 months. He continues to require pain management for the metastatic cancer pain. 03/05/20 Patient is getting weaker. Nausea is persistent and worse - will try scheduled zofran and if no improvement will try compazine. Discussed continued stool laxatives and monitor symptoms. We will continue current baseline PROTEIN CHEMIST and patient to continue bumps. Patient's life expectancy less than 2 months. 03/12/20 Patient continues to deteriorate. He does not discuss any nausea today but has it consistently. PROTEIN CHEMIST to be monitored as his baseline is now a 2mg/hr. He has worsened significantly since last week. Patient's life expectancy less than 1 month but possible less if he continues to deteriorate as quickly as from last week. 03/13/20 Patient has deteriorated. His symptoms are progressing quicker and life expectancy is decreasing. He has increased agitation and pain and his PROTEIN CHEMIST basal rate increased to 2.5.
[2020-03-13] MEDS: Morphine PF 150 MG/30 ML PCA Syringe IV PRN (23:16)
[2020-03-14] MEDS: Ondansetron 4 MG/2 ML SDV IVPUSH SCH ×6 (00:06→20:13)
[2020-03-14] MEDS: Sodium Chloride 0.9% 500 ML IV SCH (00:52)
[2020-03-14] MEDS: Metoclopramide 10 MG/2 ML SDV IV SCH ×3 (07:50→19:41)
[2020-03-14] MEDS: Pantoprazole 40 MG Vial IVPUSH SCH (08:50)
[2020-03-14] MEDS: Morphine PF 150 MG/30 ML PCA Syringe IV PRN (22:56)
[2020-03-15] MEDS: Ondansetron 4 MG/2 ML SDV IVPUSH SCH ×6 (00:45→20:08)
[2020-03-15] MEDS: LORazepam 2 MG/ML SDV IVPUSH PRN (02:33)
[2020-03-15] MEDS: Metoclopramide 10 MG/2 ML SDV IV SCH ×3 (08:22→20:07)
[2020-03-15] MEDS: Sodium Chloride 0.9% 500 ML IV SCH (08:24)
[2020-03-15] MEDS: Pantoprazole 40 MG Vial IVPUSH SCH (08:25)
[2020-03-16] MEDS: Sodium Chloride 0.9% 500 ML IV SCH ×2 (03:03→19:29)
[2020-03-16] MEDS: Ondansetron 4 MG/2 ML SDV IVPUSH SCH ×6 (04:13→20:02)
[2020-03-16] MEDS: Metoclopramide 10 MG/2 ML SDV IV SCH ×3 (08:38→19:52)
[2020-03-16] MEDS: Pantoprazole 40 MG Vial IVPUSH SCH (08:38)
[2020-03-16] MEDS: Morphine PF 150 MG/30 ML PCA Syringe IV PRN (19:21)
[2020-03-16] MEDS: LORazepam 2 MG/ML SDV IVPUSH PRN (20:31)
[2020-03-17] MEDS: Ondansetron 4 MG/2 ML SDV IVPUSH SCH ×6 (00:20→19:45)
[2020-03-17] MEDS: Metoclopramide 10 MG/2 ML SDV IV SCH ×3 (08:04→19:46)
[2020-03-17] MEDS: Pantoprazole 40 MG Vial IVPUSH SCH (10:19)
[2020-03-17] MEDS: LORazepam 2 MG/ML SDV IVPUSH PRN (19:41)
[2020-03-17] MEDS: Ondansetron 4 MG/2 ML SDV IVPUSH PRN (19:45)
[2020-03-18] MEDS: Ondansetron 4 MG/2 ML SDV IVPUSH SCH ×7 (01:40→20:11)
[2020-03-18] MEDS: Morphine PF 150 MG/30 ML PCA Syringe IV PRN (01:41)
[2020-03-18] MEDS: Sodium Chloride 0.9% 500 ML IV SCH ×2 (02:22→17:57)
[2020-03-18] MEDS: Pantoprazole 40 MG Vial IVPUSH SCH (07:59)
[2020-03-18] MEDS: Metoclopramide 10 MG/2 ML SDV IV SCH ×3 (08:03→20:17)
[2020-03-19] MEDS: Ondansetron 4 MG/2 ML SDV IVPUSH SCH ×6 (00:08→20:00)
[2020-03-19] MEDS: Morphine PF 150 MG/30 ML PCA Syringe IV PRN (04:58)
[2020-03-19] MEDS: Pantoprazole 40 MG Vial IVPUSH SCH (07:58)
[2020-03-19] MEDS: Metoclopramide 10 MG/2 ML SDV IV SCH ×2 (08:05→15:14)
--- NOTE | 2020-03-19 08:30 | PCM.PN ---
- General Info Date of Service: 03/19/20 Subjective Update: Patient is not alert and minimally responsive. He has progressed significantly in his end of life cares. He groans and mumbles and keeps his eyes shut most of the day. He has not eaten the past week, nor has any appetite when he is alert enough to eat. - Review of Systems General: Reports: Weakness HEENT: Reports: No Symptoms Musculoskeletal: Reports: No Symptoms Skin: Reports: Jaundice Neurological: Reports: Confusion, Trouble Speaking, Change in Speech Psychiatric: Reports: Confusion - Patient Data Vitals - Most Recent: Last Vital Signs Temp 36.2 C 03/11/20 10:00 Pulse 78 03/14/20 10:00 Resp 10 L 03/14/20 10:00 BP 133/64 03/11/20 10:00 Pulse Ox 95 03/14/20 10:00 Weight - Most Recent: 73.936 kg I&O - Last 24 Hours: Intake & Output 03/18/20 03/19/20 03/19/20 22:59 06:59 14:59 Intake Total 360 Balance 360 Med Orders - Current: Current Medications Bisacodyl (Dulcolax) 10 mg RECTAL DAILY PRN PRN Reason: Constipation Diphenhydramine HCl (Benadryl) 25 mg IVPUSH Q6H PRN PRN Reason: Itching and restless Last Admin: 03/10/20 19:38 Dose: 25 mg Documented by: Diphenhydramine HCl (Benadryl) 25 mg PO Q6H PRN PRN Reason: Itching Sodium Chloride (Normal Saline) 500 mls @ 30 mls/hr IV ASDIRECTED [facility] Last Admin: 03/18/20 17:57 Dose: 30 mls/hr Documented by: Sodium Chloride (Normal Saline) 1,000 mls @ 75 mls/hr IV ASDIRECTED [facility] Lorazepam (Ativan) 0.5 mg IVPUSH Q8H PRN PRN Reason: Anxiety Last Admin: 03/16/20 20:31 Dose: 0.5 mg Documented by: Lorazepam (Ativan) 1 mg IVPUSH Q6H PRN PRN Reason: Nausea/Vomiting Last Admin: 03/17/20 19:41 Dose: 1 mg Documented by: Metoclopramide HCl (Reglan) 5 mg IV TID [facility] Last Admin: 03/19/20 08:05 Dose: 5 mg Documented by: Morphine Sulfate (Morphine Finger Buffs Assembler 30 Mg In 30 Ml) 30 mg IV ASDIRECTED [facility]; Protocol Last Admin: 02/27/20 18:58 Dose: 30 mg Documented by: Morphine Sulfate (Morphine Finger Buffs Assembler 150 Mg In 30 Ml) 150 mg IV ASDIRECTED PRN; Protocol PRN Reason: Pain (severe 7-10) Last Admin: 03/19/20 04:58 Dose: 150 mg Documented by: Ondansetron HCl (Zofran) 4 mg IVPUSH Q4H PRN PRN Reason: Nausea/Vomiting Last Admin: 03/17/20 19:45 Dose: 4 mg Documented by: Ondansetron HCl (Zofran) 4 mg IVPUSH Q4H [facility] Last Admin: 03/19/20 07:39 Dose: 4 mg Documented by: Pantoprazole Sodium (Protonix Iv) 40 mg IVPUSH Q24H [facility] Last Admin: 03/19/20 07:58 Dose: 40 mg Documented by: Polyethylene Glycol (Miralax) 17 gm PO BEDTIME PRN PRN Reason: Constipation Last Admin: 03/04/20 17:03 Dose: 17 gm Documented by: Sodium Chloride (Saline Flush) 5 ml FLUSH SEECOMMENT PRN PRN Reason: Other Last Admin: 03/05/20 07:54 Dose: 5 ml Documented by: Discontinued Medications Docusate Sodium (Dok) Confirm Administered Dose 250 mg .ROUTE .STK-MED ONE Stop: 03/02/20 15:35 Last Admin: 03/02/20 15:52 Dose: Not Given Documented by: Sodium Chloride (Normal Saline) 250 mls @ 30 mls/hr IV ASDIRECTED [facility] Last Admin: 02/03/20 11:37 Dose: 30 mls/hr Documented by: Sodium Chloride (Normal Saline) 500 mls @ 30 mls/hr IV ASDIRECTED [facility] Last Admin: 03/02/20 13:28 Dose: 30 mls/hr Documented by: Dextrose/Sodium Chloride (Dextrose 5%-Normal Saline) 500 mls @ 125 mls/hr IV ASDIRECTED [facility] Last Admin: 02/23/20 09:30 Dose: 125 mls/hr Documented by: Sodium Chloride (Normal Saline) 500 mls @ 30 mls/hr IV ASDIRECTED [facility] Last Admin: 03/03/20 05:18 Dose: 30 mls/hr Documented by: Influenza Virus Vaccine (Pharmacy To Dose - Influenza Vaccine) 1 each IM ONETIME ONE Stop: 02/15/20 19:49 Influenza Virus Vaccine (Afluria Quad (3yr Up)) 60 mcg IM .ONCE ONE Stop: 01/30/20 20:01 Morphine Sulfate (Morphine Finger Buffs Assembler 30 Mg In 30 Ml) 0 mg IV ASDIRECTED [facility]; Protocol Morphine Sulfate (Morphine Finger Buffs Assembler 150 Mg In 30 Ml) 150 mg IV ASDIRECTED PRN; Protocol PRN Reason: Pain (severe 7-10) Last Admin: 03/14/20 22:56 Dose: 150 mg Documented by: Ondansetron HCl (Zofran) 4 mg IVPUSH Q6H PRN PRN Reason: Nausea/Vomiting Last Admin: 02/21/20 07:45 Dose: 4 mg Documented by: Senna/Docusate Sodium (Senna Plus) 1 tab PO DAILY PRN PRN Reason: Constipation Last Admin: 03/03/20 16:21 Dose: 1 tab Documented by: Senna/Docusate Sodium (Senna Plus) 1 tab PO BID@0800,1700 [facility] Last Admin: 03/04/20 08:06 Dose: 1 tab Documented by: Senna/Docusate Sodium (Senna Plus) 1 tab PO BID [facility] Last Admin: 03/18/20 20:10 Dose: Not Given Documented by: Tuberculin PPD (Aplisol) 5 unit IDERM ONETIME ONE Stop: 01/30/20 18:40 Last Admin: 01/30/20 19:34 Dose: 5 unit Documented by: Tuberculin PPD (Aplisol) 5 unit IDERM ONETIME ONE Stop: 02/28/20 08:01 Last Admin: 02/28/20 15:53 Dose: Not Given Documented by: - Exam General: Obtunded Lungs: Crackles, Rales, Rhonchi Cardiovascular: Regular Rhythm, Bradycardia GI/Abdominal Exam: Abnormal Bowel Sounds (decreased) Extremities: Mottled Sepsis Event Note - Evaluation Sepsis Screening Result: No Definite Risk - Problem List & Annotations (1) Comfort measures only status SNOMED Code(s): 30707663654369 Code(s): Z51.5 - ENCOUNTER FOR PALLIATIVE CARE Status: Acute Priority: High Current Visit: Yes (2) Pain managed using patient-controlled analgesia (ANCHORMAN) SNOMED Code(s): 544658572 Code(s): R52 - PAIN, UNSPECIFIED Status: Acute Priority: High Current Visit: Yes (3) Metastasis from pancreatic cancer SNOMED Code(s): 425390874 Code(s): C79.9 - SECONDARY MALIGNANT NEOPLASM OF UNSPECIFIED SITE; C25.9 - MALIGNANT NEOPLASM OF PANCREAS, UNSPECIFIED Status: Acute Priority: High Current Visit: Yes - Problem List Review Problem List Initiated/Reviewed/Updated: Yes - Plan Plan:: Patient to stay for comforts care and pain management. He will be started on ANCHORMAN pump and monitoring regularly. He has some abdominal discomfort at this time. 02/13/20 Patient stable, on increased basal morphine ANCHORMAN this past weekend, addition of z ofran this last weekend. No further changes at this time and no concerns. Continue comfort cares. 02/20/20 Patient stable. Patient continually on ANCHORMAN which has helped his pain. He has been using more zofran due to increased nausea. Patient continues on comfort cares with life expectancy less than 2 months. 02/27/20 Patient has increased weakness. Decrease appetite. Increased nausea. Patient continues to deteriorate with a life expectancy of 2 months. He continues to require pain management for the metastatic cancer pain. 03/05/20 Patient is getting weaker. Nausea is persistent and worse - will try scheduled zofran and if no improvement will try compazine. Discussed continued stool laxatives and monitor symptoms. We will continue current baseline ANCHORMAN and patient to continue bumps. Patient's life expectancy less than 2 months. 03/12/20 Patient continues to deteriorate. He does not discuss any nausea today but has it consistently. ANCHORMAN to be monitored as his baseline is now a 2mg/hr. He has worsened significantly since last week. Patient's life expectancy less than 1 month but possible less if he continues to deteriorate as quickly as from last week. 03/13/20 Patient has deteriorated. His symptoms are progressing quicker and life expectancy is decreasing. He has increased agitation and pain and his ANCHORMAN basal rate increased to 2.5. 03/19/20 Patient continues to deteriorate. His breathing is more shallow with 8- 12 breaths a minute. His pulse is lower. He is not as responsive. Life expectancy is less than a week.
[2020-03-19] MEDS: Sodium Chloride 0.9% 500 ML IV SCH (11:41)
[2020-03-20] MEDS: LORazepam 2 MG/ML SDV IVPUSH PRN ×3 (02:18→19:57)
[2020-03-20] MEDS: Sodium Chloride 0.9% 500 ML IV SCH ×2 (03:30→13:06)
[2020-03-20] MEDS: Ondansetron 4 MG/2 ML SDV IVPUSH SCH ×6 (07:34→19:45)
[2020-03-20] MEDS: Metoclopramide 10 MG/2 ML SDV IV SCH ×4 (07:45→19:43)
[2020-03-20] MEDS: Pantoprazole 40 MG Vial IVPUSH SCH (07:53)
[2020-03-20] MEDS: Morphine PF 150 MG/30 ML PCA Syringe IV PRN (13:12)
[2020-03-21] MEDS: Ondansetron 4 MG/2 ML SDV IVPUSH SCH ×6 (00:55→19:57)
[2020-03-21] MEDS: LORazepam 2 MG/ML SDV IVPUSH PRN ×3 (04:45→20:11)
[2020-03-21] MEDS: Sodium Chloride 0.9% 500 ML IV SCH ×2 (04:51→22:23)
[2020-03-21] MEDS: Metoclopramide 10 MG/2 ML SDV IV SCH ×3 (08:45→19:59)
[2020-03-21] MEDS: Pantoprazole 40 MG Vial IVPUSH SCH (09:35)
[2020-03-21] MEDS: Morphine PF 150 MG/30 ML PCA Syringe IV PRN (19:06)
[2020-03-22] MEDS: Ondansetron 4 MG/2 ML SDV IVPUSH SCH ×2 (00:19→04:03)
--- NOTE | 2020-03-23 08:15 | PCM.DCSUM1 ---
Discharge Summary - Discharge Data Discharge Date: 03/22/20 Discharge Disposition: 20 Condition: Good - Referral to Home Health Primary Care Physician: Leoncio Roberts MD - Discharge Diagnosis/Problem(s) (1) Comfort measures only status SNOMED Code(s): 63787941431503 ICD Code: Z51.5 - ENCOUNTER FOR PALLIATIVE CARE Status: Acute Priority: High (2) Pain managed using patient-controlled analgesia ([employer]) SNOMED Code(s): 036526867 ICD Code: R52 - PAIN, UNSPECIFIED Status: Acute Priority: High (3) Metastasis from pancreatic cancer SNOMED Code(s): 956932271 ICD Code: C79.9 - SECONDARY MALIGNANT NEOPLASM OF UNSPECIFIED SITE; C25.9 - MALIGNANT NEOPLASM OF PANCREAS, UNSPECIFIED Status: Acute Priority: High - Discharge Plan Home Medications: Home Meds Prochlorperazine Maleate [Compazine] 10 mg PO QID 01/30/20 [History] - Discharge Summary/Plan Comment DC Time >30 min.: No Discharge Summary/Plan Comment: Patient passed at 545am peacefully. Family contacted. home contacted. - Patient Data Vitals - Most Recent: Last Vital Signs Temp 35.4 C L 03/20/20 10:00 Pulse 43 L 03/20/20 10:00 Resp 9 L 03/20/20 10:00 BP 133/64 03/11/20 10:00 Pulse Ox 99 03/20/20 10:00 Weight - Most Recent: 73.936 kg Med Orders - Current: Current Medications Discontinued Medications Bisacodyl (Dulcolax) 10 mg RECTAL DAILY PRN PRN Reason: Constipation Diphenhydramine HCl (Benadryl) 25 mg IVPUSH Q6H PRN PRN Reason: Itching and restless Last Admin: 03/10/20 19:38 Dose: 25 mg Documented by: Diphenhydramine HCl (Benadryl) 25 mg PO Q6H PRN PRN Reason: Itching Docusate Sodium (Dok) Confirm Administered Dose 250 mg .ROUTE .STK-MED ONE Stop: 03/02/20 15:35 Last Admin: 03/02/20 15:52 Dose: Not Given Documented by: Sodium Chloride (Normal Saline) 250 mls @ 30 mls/hr IV ASDIRECTED [facility] Last Admin: 02/03/20 11:37 Dose: 30 mls/hr Documented by: Sodium Chloride (Normal Saline) 500 mls @ 30 mls/hr IV ASDIRECTED [facility] Last Admin: 03/02/20 13:28 Dose: 30 mls/hr Documented by: Dextrose/Sodium Chloride (Dextrose 5%-Normal Saline) 500 mls @ 125 mls/hr IV ASDIRECTED [facility] Last Admin: 02/23/20 09:30 Dose: 125 mls/hr Documented by: Sodium Chloride (Normal Saline) 500 mls @ 30 mls/hr IV ASDIRECTED [facility] Last Admin: 03/03/20 05:18 Dose: 30 mls/hr Documented by: Sodium Chloride (Normal Saline) 500 mls @ 30 mls/hr IV ASDIRECTED [facility] Last Admin: 03/21/20 22:23 Dose: 30 mls/hr Documented by: Sodium Chloride (Normal Saline) 1,000 mls @ 75 mls/hr IV ASDIRECTED [facility] Influenza Virus Vaccine (Pharmacy To Dose - Influenza Vaccine) 1 each IM ONETIME ONE Stop: 02/15/20 19:49 Influenza Virus Vaccine (Afluria Quad 2019- (3yr Up)) 60 mcg IM .ONCE ONE Stop: 01/30/20 20:01 Lorazepam (Ativan) 0.5 mg IVPUSH Q8H PRN PRN Reason: Anxiety Last Admin: 03/21/20 20:11 Dose: 0.5 mg Documented by: Lorazepam (Ativan) 1 mg IVPUSH Q6H PRN PRN Reason: Nausea/Vomiting Last Admin: 03/21/20 10:13 Dose: 1 mg Documented by: Metoclopramide HCl (Reglan) 5 mg IV TID [facility] Last Admin: 03/21/20 19:59 Dose: 5 mg Documented by: Morphine Sulfate (Morphine Loan Associate 30 Mg In 30 Ml) 0 mg IV ASDIRECTED [facility]; Protocol Morphine Sulfate (Morphine Loan Associate 30 Mg In 30 Ml) 30 mg IV ASDIRECTED [facility]; Protocol Last Admin: 02/27/20 18:58 Dose: 30 mg Documented by: Morphine Sulfate (Morphine Loan Associate 150 Mg In 30 Ml) 150 mg IV ASDIRECTED PRN; Protocol PRN Reason: Pain (severe 7-10) Last Admin: 03/14/20 22:56 Dose: 150 mg Documented by: Morphine Sulfate (Morphine Loan Associate 150 Mg In 30 Ml) 150 mg IV ASDIRECTED PRN; Protocol PRN Reason: Pain (severe 7-10) Last Admin: 03/19/20 04:58 Dose: 150 mg Documented by: Morphine Sulfate (Morphine Loan Associate 150 Mg In 30 Ml) 150 mg IV ASDIRECTED PRN; Protocol PRN Reason: Pain (severe 7-10) Last Admin: 03/21/20 19:06 Dose: 150 mg Documented by: Ondansetron HCl (Zofran) 4 mg IVPUSH Q6H PRN PRN Reason: Nausea/Vomiting Last Admin: 02/21/20 07:45 Dose: 4 mg Documented by: Ondansetron HCl (Zofran) 4 mg IVPUSH Q4H PRN PRN Reason: Nausea/Vomiting Last Admin: 03/17/20 19:45 Dose: 4 mg Documented by: Ondansetron HCl (Zofran) 4 mg IVPUSH Q4H [facility] Last Admin: 03/22/20 04:03 Dose: 4 mg Documented by: Pantoprazole Sodium (Protonix Iv) 40 mg IVPUSH Q24H [facility] Last Admin: 03/21/20 09:35 Dose: 40 mg Documented by: Polyethylene Glycol (Miralax) 17 gm PO BEDTIME PRN PRN Reason: Constipation Last Admin: 03/04/20 17:03 Dose: 17 gm Documented by: Senna/Docusate Sodium (Senna Plus) 1 tab PO DAILY PRN PRN Reason: Constipation Last Admin: 03/03/20 16:21 Dose: 1 tab Documented by: Senna/Docusate Sodium (Senna Plus) 1 tab PO BID@0800,1700 [facility] Last Admin: 03/04/20 08:06 Dose: 1 tab Documented by: Senna/Docusate Sodium (Senna Plus) 1 tab PO BID [facility] Last Admin: 03/18/20 20:10 Dose: Not Given Documented by: Sodium Chloride (Saline Flush) 5 ml FLUSH SEECOMMENT PRN PRN Reason: Other Last Admin: 03/05/20 07:54 Dose: 5 ml Documented by: Tuberculin PPD (Aplisol) 5 unit IDERM ONETIME ONE Stop: 01/30/20 18:40 Last Admin: 01/30/20 19:34 Dose: 5 unit Documented by: Tuberculin PPD (Aplisol) 5 unit IDERM ONETIME ONE Stop: 02/28/20 08:01 Last Admin: 02/28/20 15:53 Dose: Not Given Documented by:
== END 2020-03-22 18:15 | disposition expired | DRG 948 ==
LOC: LB.MS 18:11
PROVIDERS: ADMIT Family Medicine; ATTEND Family Medicine
DX: G89.3 Neoplasm related pain (acute) (chronic) (principal); C25.9 Malignant neoplasm of pancreas, unspecified; C79.9 Secondary malignant neoplasm of unspecified site; R53.1 Weakness; R64 Cachexia; Z51.5 Encounter for palliative care; H54.7 Unspecified visual loss; E78.00 Pure hypercholesterolemia, unspecified; I10 Essential (primary) hypertension; E11.9 Type 2 diabetes mellitus without complications; R15.9 Full incontinence of feces; R45.1 Restlessness and agitation; R42 Dizziness and giddiness; R11.0 Nausea; Z68.20 Body mass index [BMI] 20.0-20.9, adult; Z79.899 Other long term (current) drug therapy; Z92.21 Personal history of antineoplastic chemotherapy; Z91.81 History of falling
CPT/HCPCS: 51702; 51798; 82962; 86580; A9270-GY; C9113; J1200; J2060; J2270; J2274; J2405; J2765; J7030; J7040; J7050